=== PATIENT | female | born 1975 | race African-American/Black ===

== ENCOUNTER 2016-09-13 17:30 | Emergency (ER) | payer OTHER ==
[~2016-09-13] VITALS: Ht 154.9 cm; Wt 81.6 kg
[~2016-09-13 17:30] MED LIST: HYDR-2666 PO
[2016-09-13 17:42] VITALS: BP 158/94
[2016-09-13] MEDS ORDERED: ALBU2.5V14 NEB (17:54)
[2016-09-13] MEDS ORDERED: PRED50TA PO (17:54)
[2016-09-13] MEDS ORDERED: HYDR115S2 PO (17:54)
--- NOTE | 2016-09-13 17:54 | PHYS DOC ---
Past Medical History Past Medical History: Asthma, Hypertension Past Surgical History: Other Additional Past Surgical Histo: CYST REMOVAL Alcohol Use: Occasionally Drug Use: None Adult General Chief Complaint Chief Complaint: COUGH HPI HPI Patient is a 41 year old female who presents emergency room the complaint of harsh, nonproductive cough and body aches with nasal congestion that began approximately 4 days ago. Patient states that she was exposed to her mother with an upper respiratory infection for the past 2 weeks. Patient does have a history of asthma. She is a smoker. She denies antibiotic use, hospitalization or foreign travel within the past 90 days. Review of Systems Review of Systems Constitutional: Denies fever or chills [] Eyes: Denies change in visual acuity, redness, or eye pain [] HENT: Denies nasal congestion or sore throat [] Respiratory: Denies cough or shortness of breath [] Cardiovascular: No additional information not addressed in HPI [] GI: Denies abdominal pain, nausea, vomiting, bloody stools or diarrhea [] : Denies dysuria or hematuria [] Musculoskeletal: Denies back pain or joint pain [] Integument: Denies rash or skin lesions [] Neurologic: Denies headache, focal weakness or sensory changes [] Endocrine: Denies polyuria or polydipsia [] Allergies Allergies Allergies Coded Allergies Type Severity Reaction Last Updated Verified No Known Drug Allergies 05/13/16 No Physical Exam Physical Exam Constitutional: Well developed, well nourished, no acute distress, non-toxic appearance. Patient is afebrile. HENT: Normocephalic, atraumatic, bilateral external ears normal, oropharynx moist, no oral exudates, clear rhinorrhea with inflamed nasal mucosa. There is no trismus or hot potato speech. Posterior oropharynx is normal in appearance. Eyes: PERRLA, EOMI, conjunctiva normal, no discharge. [] Neck: Normal range of motion, no tenderness, supple, no stridor. There is no meningismus. There is bilateral anterior and posterior cervical lymphadenopathy. Cardiovascular:Heart rate regular rhythm, no murmur [] Lungs & Thorax: There is no respiratory distress respiratory fatigue. Patient demonstrates a harsh, nonproductive, bronchitic cough. Peripheral lung sounds are clear to auscultation bilaterally. There is some central coarse wheezing the resonates peripherally. This appears to clear with deep breath and cough. Abdomen: Bowel sounds normal, soft, no tenderness, no masses, no pulsatile masses. [] Skin: Warm, dry, no erythema, no rash. [] Back: No tenderness, no CVA tenderness. [] Extremities: No tenderness, no cyanosis, no clubbing, ROM intact, no edema. [] Neurologic: Alert and oriented X 3, normal motor function, normal sensory function, no focal deficits noted. [] Psychologic: Affect normal, judgement normal, mood normal. [] Current Patient Data Vital Signs Vital Signs Date Time Temp Pulse Resp B/P Pulse Ox O2 Delivery O2 Flow Rate FiO2 09/13/16 17:42 98.1 110 18 100 Room Air 98.1 EKG EKG [] Radiology/Procedures Radiology/Procedures [] Course & Med Decision Making Course & Med Decision Making Pertinent Labs and Imaging studies reviewed. (See chart for details) [] Dragon Disclaimer Dragon Disclaimer This electronic medical record was generated, in whole or in part, using a voice recognition dictation system. Departure Departure Impression: Primary Impression: Upper respiratory infection Disposition: HOME, SELF-CARE Condition: GOOD Referrals: UNKNOWN PCP NAME (PCP) Patient Instructions: Smoking Cessation, Tips For Success, Smoking, You Can Quit, Ixcu-bu-[id number], Upper Respiratory Infection, Adult, [id number] Additional Instructions: 1. Your viral upper respiratory infection is beginning to irritate your passageways causing inflammation. 2. Take the medication as prescribed. 3. Review the discharge instructions provided for self-care and reasons to return the emergency department. 4. Contact your primary care doctor's office in the morning to schedule follow- up appointment for reevaluation. Scripts Albuterol Sulfate (Albuterol Sulfate Conc Neb Soln)2.5 Mg/0.5 Ml Vial.neb1 Vial NEB Q4HRS wheezing #60 VIAL Ref 1 Prov:GOPAL LIEBERMAN 09/13/16 Hydrocodone/Chlorphen Polis (Tussionex Pennkinetic Susp)480 Ml Cassandra.er.12h5 Ml PO BID PRN COUGH #120 ML Prov:GOPAL LIEBERMAN 09/13/16 Prednisone 50 Mg Arqbli12 Mg PO DAILY 5 Days Prov:GOPAL LIEBERMAN 09/13/16 GOPAL LIEBERMAN Sep 13, 2016 17:54
== END 2016-09-13 18:04 | disposition home or self-care (01) ==
LOC: ER 17:30
DX: J06.9 Acute upper respiratory infection, unspecified (principal); R59.0 Localized enlarged lymph nodes; J45.909 Unspecified asthma, uncomplicated; I10 Essential (primary) hypertension; F17.200 Nicotine dependence, unspecified, uncomplicated
CPT/HCPCS: 99283

== ENCOUNTER 2019-02-14 01:51 | Inpatient (IN) | payer OTHER ==
[~2019-02-14] VITALS: Ht 154.9 cm; Wt 89.6 kg
[~2019-02-14 01:51] MED LIST changes: +ALBU2.5V14 NEB; -HYDR-2666 PO; +HYDR-2761 PO; +HYDR115S2 PO; +PRED50TA PO
[2019-02-14 02:12] LABS: BASO % 0 % (0-3); EOS # 0.2 x10^3/uL (0.0-0.7); EOS % 2 % (0-3); HEMATOCRIT 41.2 % (36.0-47.0); LYMPH % 35 % (24-48); MEAN CORPUSCULAR HEMOGLOBIN 28 pg (25-35); MEAN CORPUSCULAR HGB CONC 34 g/dL (31-37); MEAN CORPUSCULAR VOLUME 83 fL (79-100); MONO # 0.7 x10^3/uL (0.0-1.1); MONO % 8 % (0-9); NEUT # 4.7 x10^3/uL (1.8-7.7); NEUT % 54 % (31-73); PLATELET COUNT 269 x10^3/uL (140-400); RED BLOOD COUNT 4.96 x10^6/uL (3.50-5.40); RED CELL DISTRIBUTION WIDTH 14.1 % (11.5-14.5); WHITE BLOOD COUNT 8.6 x10^3/uL (4.0-11.0)
[2019-02-14 02:25] LABS: PROTHROMBIN TIME PATIENT 12.7 SEC (11.7-14.0)
[2019-02-14 02:30] LABS: D-DIMER 0.79 ug/mlFEU (0.00-0.50)
[2019-02-14] MEDS ORDERED: IV NORMAL SALINE 1000ML BAG 1,000 ML IV ONE (02:30)
[2019-02-14] MEDS ORDERED: ASPIRIN 325 MG TABLET PO ONE (02:30)
[2019-02-14 02:45] LABS: CALCIUM 9.1 mg/dL (8.5-10.1); CREATININE 0.9 mg/dL (0.6-1.0); GFR 81.9; POTASSIUM 3.7 mmol/L (3.5-5.1)
[2019-02-14 02:50] LABS: ALBUMIN 3.9 g/dL (3.4-5.0); ALBUMIN/GLOBULIN RATIO 0.9 (1.0-1.7); MAGNESIUM 1.8 mg/dL (1.8-2.4); TOTAL BILIRUBIN 0.1 mg/dL (0.2-1.0); TOTAL PROTEIN 8.2 g/dL (6.4-8.2)
[2019-02-14] MEDS ORDERED: CONTRAST GIVEN. MC PRN (03:15)
[2019-02-14] MEDS ORDERED: IOHEXOL 300 MG/ML 100ML VIAL. IV ONE (03:30)
[2019-02-14] MEDS ORDERED: fentaNYL PF VIAL 100 MCG/2 ML VIAL IV PRN (03:45)
[2019-02-14] MEDS ORDERED: ONDANSETRON PF 4 MG/2 ML VIAL. IV PRN (03:45)
[2019-02-14] MEDS ORDERED: UNABLE MC (04:04)
[2019-02-14 04:26] LABS: BILIRUBIN,URINE NEGATIVE (NEG); CLARITY,URINE CLEAR; COLOR,URINE YELLOW; NITRITE,URINE NEGATIVE (NEG); PH,URINE 6.5; PROTEIN,URINE NEGATIVE (NEG-TRACE)
[2019-02-14 04:33] LABS: BACTERIA,URINE 0 /HPF (0-FEW); RBC,URINE 0 /HPF (0-2); SQUAMOUS EPITHELIAL CELL,UR MOD /LPF
--- NOTE | 2019-02-14 05:54 | PHYS DOC ---
Past Medical History Past Medical History: Asthma, Hypertension Past Surgical History: Other Additional Past Surgical Histo: CYST REMOVAL Smoking: Cigarettes Alcohol Use: Occasionally Drug Use: None Adult General Chief Complaint Chief Complaint: CHEST PAIN HPI HPI Patient is a 43 year old [f__sex] who presents with [] Review of Systems Review of Systems Constitutional: Denies fever or chills [] Eyes: Denies change in visual acuity, redness, or eye pain [] HENT: Denies nasal congestion or sore throat [] Respiratory: Denies cough or shortness of breath [] Cardiovascular: No additional information not addressed in HPI [] GI: Denies abdominal pain, nausea, vomiting, bloody stools or diarrhea [] : Denies dysuria or hematuria [] Musculoskeletal: Denies back pain or joint pain [] Integument: Denies rash or skin lesions [] Neurologic: Denies headache, focal weakness or sensory changes [] Endocrine: Denies polyuria or polydipsia [] All other systems were reviewed and found to be within normal limits, except as documented in this note. Current Medications Current Medications Current Medications Medications (Trade) Dose Ordered Sig/Cj Start Time Stop Time Status Last Admin Dose Admin Aspirin (Ashely Aspirin) 325 mg 1X ONCE 02/14/19 02:30 02/14/19 02:31 DC 02/14/19 02:42 325 MG Info (CONTRAST GIVEN -- Rx MONITORING) 1 each PRN DAILY PRN 02/14/19 03:15 02/16/19 03:14 Cancel Iohexol (Omnipaque 300 Mg/ml) 75 ml 1X ONCE 02/14/19 03:30 02/14/19 03:31 Cancel Sodium Chloride 1,000 ml @ 1,000 mls/hr 1X ONCE 02/14/19 02:30 02/14/19 03:29 DC 02/14/19 02:42 1,000 MLS/HR Physical Exam Physical Exam Constitutional: Well developed, well nourished, no acute distress, non-toxic appearance. [] HENT: Normocephalic, atraumatic, bilateral external ears normal, oropharynx moist, no oral exudates, nose normal. [] Eyes: PERRLA, EOMI, conjunctiva normal, no discharge. [] Neck: Normal range of motion, no tenderness, supple, no stridor. [] Cardiovascular:Heart rate regular rhythm, no murmur [] Lungs & Thorax: Bilateral breath sounds clear to auscultation [] Abdomen: Bowel sounds normal, soft, no tenderness, no masses, no pulsatile masses. [] Skin: Warm, dry, no erythema, no rash. [] Back: No tenderness, no CVA tenderness. [] Extremities: No tenderness, no cyanosis, no clubbing, ROM intact, no edema. [] Neurologic: Alert and oriented X 3, normal motor function, normal sensory function, no focal deficits noted. [] Psychologic: Affect normal, judgement normal, mood normal. [] Current Patient Data Vital Signs Vital Signs Date Time Temp Pulse Resp B/P (MAP) Pulse Ox O2 Delivery O2 Flow Rate FiO2 02/14/19 02:33 73 123/68 (86) 99 02/14/19 01:59 98.8 20 Room Air 98.8 Lab Values Laboratory Tests Test 02/14/19 02:00 White Blood Count 8.6 x10^3/uL (4.0-11.0) Red Blood Count 4.96 x10^6/uL (3.50-5.40) Hemoglobin 14.0 g/dL (12.0-15.5) Hematocrit 41.2 % (36.0-47.0) Mean Corpuscular Volume 83 fL (79-100) Mean Corpuscular Hemoglobin 28 pg (25-35) Mean Corpuscular Hemoglobin Concent 34 g/dL (31-37) Red Cell Distribution Width 14.1 % (11.5-14.5) Platelet Count 269 x10^3/uL (140-400) Neutrophils (%) (Auto) 54 % (31-73) Lymphocytes (%) (Auto) 35 % (24-48) Monocytes (%) (Auto) 8 % (0-9) Eosinophils (%) (Auto) 2 % (0-3) Basophils (%) (Auto) 0 % (0-3) Neutrophils # (Auto) 4.7 x10^3/uL (1.8-7.7) Lymphocytes # (Auto) 3.0 x10^3/uL (1.0-4.8) Monocytes # (Auto) 0.7 x10^3/uL (0.0-1.1) Eosinophils # (Auto) 0.2 x10^3/uL (0.0-0.7) Basophils # (Auto) 0.0 x10^3/uL (0.0-0.2) Prothrombin Time 12.7 SEC (11.7-14.0) Prothrombin Time INR 1.0 (0.8-1.1) Activated Partial Thromboplast Time 35 SEC (24-38) D-Dimer (Stephany) 0.79 ug/mlFEU (0.00-0.50) H Sodium Level 141 mmol/L (136-145) Potassium Level 3.7 mmol/L (3.5-5.1) Chloride Level 103 mmol/L (98-107) Carbon Dioxide Level 24 mmol/L (21-32) Anion Gap 14 (6-14) Blood Urea Nitrogen 16 mg/dL (7-20) Creatinine 0.9 mg/dL (0.6-1.0) Estimated GFR (Cockcroft-Gault) 81.9 BUN/Creatinine Ratio 18 (6-20) Glucose Level 108 mg/dL (70-99) H Calcium Level 9.1 mg/dL (8.5-10.1) Magnesium Level 1.8 mg/dL (1.8-2.4) Total Bilirubin 0.1 mg/dL (0.2-1.0) L Aspartate Amino Transferase (AST) 19 U/L (15-37) Alanine Aminotransferase (ALT) 33 U/L (14-59) Alkaline Phosphatase 80 U/L (46-116) Creatine Kinase 97 U/L (26-192) Creatine Kinase MB (Mass) 0.6 ng/mL (0.0-3.6) Creatine Kinase MB Relative Index 0.6 % (0-4) Troponin I Quantitative 0.041 ng/mL (0.000-0.055) RO-Vzm-W-Type Natriuretic Peptide 32 pg/mL (0-124) Total Protein 8.2 g/dL (6.4-8.2) Albumin 3.9 g/dL (3.4-5.0) Albumin/Globulin Ratio 0.9 (1.0-1.7) L Lipase 127 U/L (73-393) Laboratory Tests 02/14/19 02:00 Laboratory Tests 02/14/19 02:00 EKG EKG EKG obtained 01:59 and read @ 02:03. No ST-elevations noted.[] Radiology/Procedures Radiology/Procedures [] Course & Med Decision Making Course & Med Decision Making Pertinent Labs and Imaging studies reviewed. (See chart for details) [] Dragon Disclaimer Dragon Disclaimer This electronic medical record was generated, in whole or in part, using a voice recognition dictation system. Departure Departure Impression: Primary Impression: Chest pain, rule out acute myocardial infarction Additional Impression: Elevated d-dimer Disposition: ADMITTED INPATIENT Admitting Physician: FIFI Lares) Condition: STABLE Referrals: NO PCP (PCP) The HEART Score for CP Pts HEART Score for Chest Pain: HEART Score for Chest Pain Response (Comments) Value History Moderately Suspicious 1 ECG Normal 0 Age >45 - < 65 1 Risk Factors 1 or 2 Risk Factors 1 Troponin < Normal Limit 0 Total 3 Risk Factors: Risk Factors: DM, Current or recent (<one month) smoker, HTN, HLP, family history of CAD, obesity. Risk Scores: Score 0 - 3: 2.5% MACE over next 6 weeks - Discharge Home Score 4 - 6: 20.3% MACE over next 6 weeks - Admit for Clinical Observation Score 7 - 10: 72.7% MACE over next 6 weeks - Early Invasive Strategies Problem Qualifiers MARIBEL ROBERSON DO Feb 14, 2019 05:54
--- NOTE | 2019-02-14 06:25 | EKG ---
[facility] [address] [place] [address] Test Date: 2019-02-14 Test Time: 01:59:34 Pat Name: RADHA BETANCOURT Department: Room: Gender: F Demi Chef: MATTHEW : 1975 Requested By: MARIBEL ROBERSON Order Number: [id number] Reading MD: Measurements Intervals [place] Rate: 87 P: 29 MA: 156 QRS: 30 QRSD: 88 T: 9 QT: 368 QTc: 449 Interpretive Statements SINUS RHYTHM T ABNORMALITY IN INFEROLATERAL LEADS ABNORMAL ECG RI6.01 No previous ECG available for comparison
--- NOTE | 2019-02-14 07:45 | RAD ---
CHEST PA LATERAL History: Chest pain Comparison: Two-view chest May 13, 2016. Findings: The cardiomediastinal silhouette is normal. Pulmonary vasculature is normal. The lungs are clear. No pleural effusion or pneumothorax is seen. There is no acute bone abnormality. IMPRESSION: No acute cardiopulmonary process. Electronically signed by: Donavon Canada MD (02/14/2019 7:42 AM) [id number]
--- NOTE | 2019-02-14 09:00 | PDOC2 ---
JONATAN JEROME LOOM FIXER HELPER 02/14/19 0859: CARDIAC CONSULT DATE OF CONSULT Date of Consult DATE: 02/14/19 TIME: 08:56 REASON FOR CONSULT Reason for Consult: Chest pain REFERRING PHYSICIAN Referring Physician: Dr. Walsh SOURCE Source: Chart review, Patient HISTORY OF PRESENT ILLNESS HISTORY OF PRESENT ILLNESS This is a 43 yo female who presented secondary to chest pain. Patient reports intermittent sharp pain in her right chest since yesterday morning. Woke up early this morning with palpitations so she decided to come to the ED for further evaluation and treatment. Thinks it could be anxiety. Is also having some mid-back pain that makes her feel like it is cutting off her air. No associated dizziness, diaphoresis, or nausea/vomiting. Works in a [employer] from [employer]. Has worked 9 days in a row. Has noticed some bilateral LE edema recently. Does improved overnight. No history of CAD. PAST MEDICAL HISTORY Cardiovascular: HTN Pulmonary: Asthma Musculoskeletal: Osteoarthritis PAST SURGICAL HISTORY Past Surgical History: Other (ovarian cyst removal ) FAMILY HISTORY Family History: Drug Abuse, Hypertension SOCIAL HISTORY Smoke: <1 pack per day ALCOHOL: none Drugs: None Lives: with Family CURRENT MEDICATIONS CURRENT MEDICATIONS Current Medications Medications (Trade) Dose Ordered Sig/Cj Route PRN Reason Start Time Stop Time Status Last Admin Dose Admin Aspirin (Ashely Aspirin) 325 mg 1X ONCE PO 02/14/19 02:30 02/14/19 02:31 DC 02/14/19 02:42 Sodium Chloride 1,000 ml @ 1,000 mls/hr 1X ONCE IV 02/14/19 02:30 02/14/19 03:29 DC 02/14/19 02:42 ALLERGIES ALLERGIES: Coded Allergies: Iodinated Contrast- Oral and IV Dye (Verified Allergy, Severe, ANAPHALA XIS, 02/14/19) ROS Review of System 14 point ROS conducted with pertinent positives noted above in HPI. PHYSICAL EXAM General: Alert, Oriented X3, Cooperative, No acute distress HEENT: Atraumatic Lungs: Clear to auscultation, Normal air movement Heart: Regular rate, Normal S1, Normal S2, No murmurs Abdomen: Soft, No tenderness Extremities: No edema, Normal pulses Skin: No significant lesion Neuro: Normal speech, Sensation intact Psych/Mental Status: Mental status NL, Mood NL MUSCULOSKELETAL: Osteoarthritic changes both hands VITALS/I&O VITALS/I&O: Vital Signs Date Time Temp Pulse Resp B/P (MAP) Pulse Ox O2 Delivery O2 Flow Rate FiO2 02/14/19 06:54 69 145/75 (98) 98 02/14/19 01:59 98.8 20 Room Air 98.8 LABS Lab: Laboratory Tests Test 02/14/19 02:00 02/14/19 04:15 02/14/19 07:25 White Blood Count 8.6 x10^3/uL (4.0-11.0) Red Blood Count 4.96 x10^6/uL (3.50-5.40) Hemoglobin 14.0 g/dL (12.0-15.5) Hematocrit 41.2 % (36.0-47.0) Mean Corpuscular Volume 83 fL (79-100) Mean Corpuscular Hemoglobin 28 pg (25-35) Mean Corpuscular Hemoglobin Concent 34 g/dL (31-37) Red Cell Distribution Width 14.1 % (11.5-14.5) Platelet Count 269 x10^3/uL (140-400) Neutrophils (%) (Auto) 54 % (31-73) Lymphocytes (%) (Auto) 35 % (24-48) Monocytes (%) (Auto) 8 % (0-9) Eosinophils (%) (Auto) 2 % (0-3) Basophils (%) (Auto) 0 % (0-3) Neutrophils # (Auto) 4.7 x10^3/uL (1.8-7.7) Lymphocytes # (Auto) 3.0 x10^3/uL (1.0-4.8) Monocytes # (Auto) 0.7 x10^3/uL (0.0-1.1) Eosinophils # (Auto) 0.2 x10^3/uL (0.0-0.7) Basophils # (Auto) 0.0 x10^3/uL (0.0-0.2) Prothrombin Time 12.7 SEC (11.7-14.0) Prothrombin Time INR 1.0 (0.8-1.1) Activated Partial Thromboplast Time 35 SEC (24-38) D-Dimer (Stephany) 0.79 ug/mlFEU (0.00-0.50) H Sodium Level 141 mmol/L (136-145) Potassium Level 3.7 mmol/L (3.5-5.1) Chloride Level 103 mmol/L (98-107) Carbon Dioxide Level 24 mmol/L (21-32) Anion Gap 14 (6-14) Blood Urea Nitrogen 16 mg/dL (7-20) Creatinine 0.9 mg/dL (0.6-1.0) Estimated GFR (Cockcroft-Gault) 81.9 BUN/Creatinine Ratio 18 (6-20) Glucose Level 108 mg/dL (70-99) H Calcium Level 9.1 mg/dL (8.5-10.1) Magnesium Level 1.8 mg/dL (1.8-2.4) Total Bilirubin 0.1 mg/dL (0.2-1.0) L Aspartate Amino Transferase (AST) 19 U/L (15-37) Alanine Aminotransferase (ALT) 33 U/L (14-59) Alkaline Phosphatase 80 U/L (46-116) Creatine Kinase 97 U/L (26-192) Creatine Kinase MB (Mass) 0.6 ng/mL (0.0-3.6) Creatine Kinase MB Relative Index 0.6 % (0-4) Troponin I Quantitative 0.041 ng/mL (0.000-0.055) 0.024 ng/mL (0.000-0.055) OU-Okl-T-Type Natriuretic Peptide 32 pg/mL (0-124) Total Protein 8.2 g/dL (6.4-8.2) Albumin 3.9 g/dL (3.4-5.0) Albumin/Globulin Ratio 0.9 (1.0-1.7) L Lipase 127 U/L (73-393) Urine Collection Type Unknown Urine Color Yellow Urine Clarity Clear Urine pH 6.5 Urine Specific Bayard 1.015 Urine Protein Negative mg/dL (NEG-TRACE) Urine Glucose (UA) Negative mg/dL (NEG) Urine Ketones (Stick) Negative mg/dL (NEG) Urine Blood Negative (NEG) Urine Nitrite Negative (NEG) Urine Bilirubin Negative (NEG) Urine Urobilinogen Dipstick 1.0 mg/dL (0.2 mg/dL) Urine Leukocyte Esterase Negative (NEG) Urine RBC 0 /HPF (0-2) Urine WBC 1-4 /HPF (0-4) Urine Squamous Epithelial Cells Mod /LPF Urine Bacteria 0 /HPF (0-FEW) Urine Mucus Slight /LPF Laboratory Tests 02/14/19 02:00 Laboratory Tests 02/14/19 02:00 ASSESSMENT/PLAN ASSESSMENT/PLAN 1. Chest pain, atypical. Trop negative x2- AMI ruled out. ? Anxiety component1. 2. Hypertension Recommendations ASA Lipids Trend troponin Echo to assess LV systolic function Supportive care Consider outpatient ischemic evaluation unless echo significantly abnormal MARGARITO COBB MD 02/14/19 2107: CARDIAC CONSULT ASSESSMENT/PLAN ASSESSMENT/PLAN Patient seen and examined. Agree with DISH CARRIER's assessment and plan. CP with very atypical features RI ruled out Plan echo to rule out wall motion abnormalities We will consider ischemic evaluation as outpatient Thank you for your consultation JONATAN JEROME APRN Feb 14, 2019 08:59 MARGARITO COBB MD Feb 14, 2019 21:07
--- NOTE | 2019-02-14 10:48 | RAD ---
EXAM: Bilateral lower extremity venous Doppler sonogram. HISTORY: Elevated d-dimer. Pain and swelling. TECHNIQUE: Beltran scale and color Doppler sonographic evaluation of the bilateral lower extremity veins with spectral waveform analysis was performed. FINDINGS: There is normal color flow, normal compressibility and there are normal spectral waveforms in the common femoral, superficial femoral, popliteal, posterior tibial and greater saphenous veins. IMPRESSION: No Doppler evidence of lower extremity deep venous thrombosis. Electronically signed by: Nahomy Newell MD (02/14/2019 10:46 AM) [place] [id number]
--- NOTE | 2019-02-14 12:32 | PDOC1 ---
History and Physical Date of Admission Date of Admission DATE: 02/14/19 TIME: 12:32 Identification/Chief Complaint Chief Complaint seen in ER THIS AM WITH right chest since yesterday morning. Woke up early this morning with palpitations so she decided to come to the ED for further evaluation and treatment. Thinks it could be anxiety. Is also having some mid-back pain that makes her feel like it is cutting off her air. under stress, worked last 9 days in a row No associated dizziness, diaphoresis, or nausea/vomiting. D-DIMER ELEVATED, V/Q SCAN IS PENDING Past Medical History Past Medical History Past Medical History Past Medical History Past Medical History: Asthma, Hypertension Past Surgical History: Other Additional Past Surgical Histo: CYST REMOVAL Smoking: Cigarettes Alcohol Use: Occasionally Drug Use: None family hx obesity Cardiovascular: HTN Pulmonary: Asthma GI: No pertinent hx Musculoskeletal: Osteoarthritis Infectious disease: No pertinent hx ENT: No pertinent hx Renal/: No pertinent hx Past Surgical History Past Surgical History: Other (ovarian cyst removal ) Family History Family History: Drug Abuse, Hypertension Social History Smoke: <1 pack per day ALCOHOL: none Drugs: None Current Medications Current Medications Current Medications Aspirin (Ashely Aspirin) 325 mg 1X ONCE PO Last administered on 02/14/19at 02:42; Start 02/14/19 at 02:30; Stop 02/14/19 at 02:31; Status DC Sodium Chloride 1,000 ml @ 1,000 mls/hr 1X ONCE IV Last administered on 02/14/19at 02:42; Start 02/14/19 at 02:30; Stop 02/14/19 at 03:29; Status DC Iohexol (Omnipaque 300 Mg/ml) 75 ml 1X ONCE IV ; Start 02/14/19 at 03:30; Stop 02/14/19 at 03:31; Status Cancel Info (CONTRAST GIVEN -- Rx MONITORING) 1 each PRN DAILY PRN MC SEE COMMENTS; Start 02/14/19 at 03:15; Stop 02/16/19 at 03:14; Status Cancel Ondansetron HCl (Zofran) 4 mg PRN Q8HRS PRN IV NAUSEA/VOMITING 1ST CHOICE; Start 02/14/19 at 03:45; Stop 02/15/19 at 03:44 Fentanyl Citrate (Fentanyl 2ml Vial) 50 mcg PRN Q2HRS PRN IV SEVERE PAIN 7-10; Start 02/14/19 at 03:45 Active Scripts Active Albuterol Sulfate Conc Neb Soln (Albuterol Sulfate) 2.5 Mg/0.5 Ml Vial.neb 1 Vial NEB Q4HRS Tussionex Pennkinetic Susp (Hydrocodone/Chlorphen Polis) 480 Ml Cassandra.er.12h 5 Ml PO BID PRN Prednisone 50 Mg Tablet 50 Mg PO DAILY 5 Days Hydrocodone-Apap 5-325 (Hydrocodone Bit/Acetaminophen) 1 Each Tablet 1 Tab PO PRN Q4-6HRS PRN Reported Unable To Obtain Meds From Prior To Admit (Info) Each 1 Each MC Allergies Allergies: Coded Allergies: Iodinated Contrast- Oral and IV Dye (Verified Allergy, Severe, ANAPHALAXIS, 02/14/19) ROS Review of System Review of Systems Review of Systems Constitutional: Denies fever or chills [] Eyes: Denies change in visual acuity, redness, or eye pain [] HENT: Denies nasal congestion or sore throat [] Respiratory: Denies cough or shortness of breath [] Cardiovascular: No additional information not addressed in HPI [] GI: Denies abdominal pain, nausea, vomiting, bloody stools or diarrhea [] : Denies dysuria or hematuria [] Musculoskeletal: Denies back pain or joint pain [] Integument: Denies rash or skin lesions [] Neurologic: Denies headache, focal weakness or sensory changes [] Endocrine: Denies polyuria or polydipsia [] 14 pt systems were reviewed and found to be within normal limits, except as documented PSYCHOLOGICAL ROS: YES: Anxiety ALLERGY AND IMMUNOLOGY: No: Hives, Insect Bite Sensitivity, Itchy/Watery Eyes, Nasal Congestion, Post Nasal Drip, Seasonal Allergies, Other Hematological and Lymphatic: No: Bleeding Problems, Blood Clots, Blood Transfusions, Brusing, Night Sweats, Pallor, Swollen Lymph Nodes, Other Respiratory: No: Cough, Hemoptysis, Orthopnea, Pleuritic Pain, Shortness of breath, SOB with excertion, Sputum Changes, Stridor, Tachypnea, Wheezing, Other Cardiovascular: yes Chest Pain, yes Palpitations Gastrointestinal: No Nausea, No Vomiting, No Abdominal Pain, No Diarrhea, No Constipation, No Melena, No Hematochezia, No Other Genitourinary: No Dysuria, No Frequency, No Incontinence, No Hematuria, No Retention, No Discharge, No Urgency, No Pain, No Flank Pain, No Other, No , No , No , No , No , No , No Musculoskeletal: No Gait Disturbance, No Joint Pain, No Joint Stiffness, No Joint Swelling, No Muscle Pain, No Muscular Weakness, No Pain In:, No Swelling In:, No Other Physical Exam Physical Exam Physical Exam Physical Exam Constitutional: Well developed, well nourished, no acute distress, non-toxic appearance. [] HENT: Normocephalic, atraumatic, bilateral external ears normal, oropharynx moist, no oral exudates, nose normal. [] Eyes: PERRLA, EOMI, conjunctiva normal, no discharge. [] Neck: Normal range of motion, no tenderness, supple, no stridor. [] Cardiovascular:Heart rate regular rhythm, no murmur [] Lungs & Thorax: Bilateral breath sounds clear to auscultation [] Abdomen: Bowel sounds normal, soft, no tenderness, no masses, no pulsatile masses. [] Skin: Warm, dry, no erythema, no rash. [] Back: No tenderness, no CVA tenderness. [] Extremities: No tenderness, no cyanosis, no clubbing, ROM intact, no edema. [] Neurologic: Alert and oriented X 3, normal motor function, normal sensory function, no focal deficits noted. [] Psychologic: Affect normal, judgement normal, mood normal. [] General: Alert, Oriented X3, Cooperative, No acute distress HEENT: Atraumatic Lungs: Clear to auscultation Heart: RRR Breasts: Not examined Abdomen: Soft Rectal Exam: not examined PELVIC: Examination not indicated Extremities: No cyanosis Neuro: Normal speech, Cranial nerves 3-12 NL Psych/Mental Status: Mental status NL, Mood NL Vitals Vitals Vital Signs Date Time Temp Pulse Resp B/P (MAP) Pulse Ox O2 Delivery O2 Flow Rate FiO2 02/14/19 10:00 70 16 112/53 (72) 97 Room Air 02/14/19 01:59 98.8 98.8 Labs Labs Laboratory Tests Test 02/14/19 02:00 02/14/19 04:15 02/14/19 07:25 02/14/19 09:45 White Blood Count 8.6 x10^3/uL (4.0-11.0) Red Blood Count 4.96 x10^6/uL (3.50-5.40) Hemoglobin 14.0 g/dL (12.0-15.5) Hematocrit 41.2 % (36.0-47.0) Mean Corpuscular Volume 83 fL (79-100) Mean Corpuscular Hemoglobin 28 pg (25-35) Mean Corpuscular Hemoglobin Concent 34 g/dL (31-37) Red Cell Distribution Width 14.1 % (11.5-14.5) Platelet Count 269 x10^3/uL (140-400) Neutrophils (%) (Auto) 54 % (31-73) Lymphocytes (%) (Auto) 35 % (24-48) Monocytes (%) (Auto) 8 % (0-9) Eosinophils (%) (Auto) 2 % (0-3) Basophils (%) (Auto) 0 % (0-3) Neutrophils # (Auto) 4.7 x10^3/uL (1.8-7.7) Lymphocytes # (Auto) 3.0 x10^3/uL (1.0-4.8) Monocytes # (Auto) 0.7 x10^3/uL (0.0-1.1) Eosinophils # (Auto) 0.2 x10^3/uL (0.0-0.7) Basophils # (Auto) 0.0 x10^3/uL (0.0-0.2) Prothrombin Time 12.7 SEC (11.7-14.0) Prothromb Time International Ratio 1.0 (0.8-1.1) Activated Partial Thromboplast Time 35 SEC (24-38) D-Dimer (Stephany) 0.79 ug/mlFEU (0.00-0.50) Sodium Level 141 mmol/L (136-145) Potassium Level 3.7 mmol/L (3.5-5.1) Chloride Level 103 mmol/L (98-107) Carbon Dioxide Level 24 mmol/L (21-32) Anion Gap 14 (6-14) Blood Urea Nitrogen 16 mg/dL (7-20) Creatinine 0.9 mg/dL (0.6-1.0) Estimated GFR (Cockcroft-Gault) 81.9 BUN/Creatinine Ratio 18 (6-20) Glucose Level 108 mg/dL (70-99) Calcium Level 9.1 mg/dL (8.5-10.1) Magnesium Level 1.8 mg/dL (1.8-2.4) Total Bilirubin 0.1 mg/dL (0.2-1.0) Aspartate Amino Transf (AST/SGOT) 19 U/L (15-37) Alanine Aminotransferase (ALT/SGPT) 33 U/L (14-59) Alkaline Phosphatase 80 U/L (46-116) Creatine Kinase 97 U/L (26-192) Creatine Kinase MB (Mass) 0.6 ng/mL (0.0-3.6) Creatine Kinase MB Relative Index 0.6 % (0-4) Troponin I Quantitative 0.041 ng/mL (0.000-0.055) 0.024 ng/mL (0.000-0.055) 0.027 ng/mL (0.000-0.055) HP-Mcc-A-Type Natriuretic Peptide 32 pg/mL (0-124) Total Protein 8.2 g/dL (6.4-8.2) Albumin 3.9 g/dL (3.4-5.0) Albumin/Globulin Ratio 0.9 (1.0-1.7) Lipase 127 U/L (73-393) Urine Collection Type Unknown Urine Color Yellow Urine Clarity Clear Urine pH 6.5 Urine Specific [place] 1.015 Urine Protein Negative mg/dL (NEG-TRACE) Urine Glucose (UA) Negative mg/dL (NEG) Urine Ketones (Stick) Negative mg/dL (NEG) Urine Blood Negative (NEG) Urine Nitrite Negative (NEG) Urine Bilirubin Negative (NEG) Urine Urobilinogen Dipstick 1.0 mg/dL (0.2 mg/dL) Urine Leukocyte Esterase Negative (NEG) Urine RBC 0 /HPF (0-2) Urine WBC 1-4 /HPF (0-4) Urine Squamous Epithelial Cells Mod /LPF Urine Bacteria 0 /HPF (0-FEW) Urine Mucus Slight /LPF Laboratory Tests Test 02/14/19 02:00 02/14/19 04:15 02/14/19 07:25 02/14/19 09:45 White Blood Count 8.6 x10^3/uL (4.0-11.0) Red Blood Count 4.96 x10^6/uL (3.50-5.40) Hemoglobin 14.0 g/dL (12.0-15.5) Hematocrit 41.2 % (36.0-47.0) Mean Corpuscular Volume 83 fL (79-100) Mean Corpuscular Hemoglobin 28 pg (25-35) Mean Corpuscular Hemoglobin Concent 34 g/dL (31-37) Red Cell Distribution Width 14.1 % (11.5-14.5) Platelet Count 269 x10^3/uL (140-400) Neutrophils (%) (Auto) 54 % (31-73) Lymphocytes (%) (Auto) 35 % (24-48) Monocytes (%) (Auto) 8 % (0-9) Eosinophils (%) (Auto) 2 % (0-3) Basophils (%) (Auto) 0 % (0-3) Neutrophils # (Auto) 4.7 x10^3/uL (1.8-7.7) Lymphocytes # (Auto) 3.0 x10^3/uL (1.0-4.8) Monocytes # (Auto) 0.7 x10^3/uL (0.0-1.1) Eosinophils # (Auto) 0.2 x10^3/uL (0.0-0.7) Basophils # (Auto) 0.0 x10^3/uL (0.0-0.2) Prothrombin Time 12.7 SEC (11.7-14.0) Prothromb Time International Ratio 1.0 (0.8-1.1) Activated Partial Thromboplast Time 35 SEC (24-38) D-Dimer (Stephany) 0.79 ug/mlFEU (0.00-0.50) Sodium Level 141 mmol/L (136-145) Potassium Level 3.7 mmol/L (3.5-5.1) Chloride Level 103 mmol/L (98-107) Carbon Dioxide Level 24 mmol/L (21-32) Anion Gap 14 (6-14) Blood Urea Nitrogen 16 mg/dL (7-20) Creatinine 0.9 mg/dL (0.6-1.0) Estimated GFR (Cockcroft-Gault) 81.9 BUN/Creatinine Ratio 18 (6-20) Glucose Level 108 mg/dL (70-99) Calcium Level 9.1 mg/dL (8.5-10.1) Magnesium Level 1.8 mg/dL (1.8-2.4) Total Bilirubin 0.1 mg/dL (0.2-1.0) Aspartate Amino Transf (AST/SGOT) 19 U/L (15-37) Alanine Aminotransferase (ALT/SGPT) 33 U/L (14-59) Alkaline Phosphatase 80 U/L (46-116) Creatine Kinase 97 U/L (26-192) Creatine Kinase MB (Mass) 0.6 ng/mL (0.0-3.6) Creatine Kinase MB Relative Index 0.6 % (0-4) Troponin I Quantitative 0.041 ng/mL (0.000-0.055) 0.024 ng/mL (0.000-0.055) 0.027 ng/mL (0.000-0.055) CZ-Gez-A-Type Natriuretic Peptide 32 pg/mL (0-124) Total Protein 8.2 g/dL (6.4-8.2) Albumin 3.9 g/dL (3.4-5.0) Albumin/Globulin Ratio 0.9 (1.0-1.7) Lipase 127 U/L (73-393) Urine Collection Type Unknown Urine Color Yellow Urine Clarity Clear Urine pH 6.5 Urine Specific [place] 1.015 Urine Protein Negative mg/dL (NEG-TRACE) Urine Glucose (UA) Negative mg/dL (NEG) Urine Ketones (Stick) Negative mg/dL (NEG) Urine Blood Negative (NEG) Urine Nitrite Negative (NEG) Urine Bilirubin Negative (NEG) Urine Urobilinogen Dipstick 1.0 mg/dL (0.2 mg/dL) Urine Leukocyte Esterase Negative (NEG) Urine RBC 0 /HPF (0-2) Urine WBC 1-4 /HPF (0-4) Urine Squamous Epithelial Cells Mod /LPF Urine Bacteria 0 /HPF (0-FEW) Urine Mucus Slight /LPF Images Images CHEST PA LATERAL History: Chest pain Comparison: Two-view chest May 13, 2016. Findings: The cardiomediastinal silhouette is normal. Pulmonary vasculature is normal. The lungs are clear. No pleural effusion or pneumothorax is seen. There is no acute bone abnormality. IMPRESSION: No acute cardiopulmonary process. 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 HISTORY: Elevated d-dimer. Pain and swelling. TECHNIQUE: Beltran scale and color Doppler sonographic evaluation of the bilateral lower extremity veins with spectral waveform analysis was performed. FINDINGS: There is normal color flow, normal compressibility and there are normal spectral waveforms in the common femoral, superficial femoral, popliteal, posterior tibial and greater saphenous veins. IMPRESSION: No Doppler evidence of lower extremity deep venous thrombosis. Electronically signed by: Nahomy Gibbs MD (02/14/2019 10:46 AM) [facility]2 DICTATED and SIGNED BY: NAHOMY GIBBS MD DATE: 02/14/19 1046 VTE Prophylaxis Ordered VTE Prophylaxis Devices: Yes VTE Pharmacological Prophylaxi: Yes Assessment/Plan Assessment/Plan IMPRESSION Atypical chest discomfort morbid obesity hypertension ELEVATED D- DIMER ADMIT CVC BED ASA Lipids, fasting V/Q SCAN pau cardiology consult Trend troponin I Echo VENOUS DOPPLER BOTH LEGS NEG FOR DVT dvt prophylaxis 62 min pt exam, chart review, > 50% of time spent with exam, chart review, pt care coordination BONIFACIO CLARK MD Feb 14, 2019 12:32
[2019-02-14 13:15] VITALS: BP 136/82
[2019-02-14] MEDS ORDERED: ENOXAPARIN 40 MG/0.4 ML SYRINGE. SQ SCH (14:00)
[2019-02-14] MEDS ORDERED: ALBU2.5V8 PO (14:01)
[2019-02-14] MEDS ORDERED: HYDR12.59 PO (14:01)
[2019-02-14] MEDS ORDERED: AMLO10TA8 PO (14:01)
[2019-02-14 15:00] VITALS: BP 132/76
[2019-02-14] MEDS: amLODIPine BESYLATE 10 MG TABLET PO SCH (15:00)
[2019-02-14] MEDS: hydroCHLOROthiazide 12.5 MG CAPSULE PO SCH (15:00)
[2019-02-14] MEDS ORDERED: HYDROcodone/APAP 5/325MG 1 TAB TABLET PO PRN (15:00)
[2019-02-14] MEDS ORDERED: NON FORMULARY ITEM (Albuterol Sulfate (Albuterol Sulfate Conc Neb Soln) 1 VIAL) NEB SCH (16:00)
[2019-02-14] MEDS: ALBUTEROL SULFATE 2.5 MG/3 ML NEBU. NEB SCH ×2 (16:36→19:42)
[2019-02-14 19:05] VITALS: BP 117/67
[2019-02-14 23:35] VITALS: BP 151/84
[2019-02-15 03:33] VITALS: BP 142/79
[2019-02-15] MEDS: ALBUTEROL SULFATE 2.5 MG/3 ML NEBU. NEB SCH ×5 (03:38→15:52)
[2019-02-15 05:56] LABS: CHOLESTEROL/HDL RATIO 3.5
[2019-02-15 07:00] VITALS: BP 133/79
--- NOTE | 2019-02-15 08:10 | PDOC ---
PROGRESS NOTES Chief Complaint Chief Complaint Atypical chest discomfort morbid obesity hypertension ELEVATED D- DIMER Aortic regurgitation, moderate Ascending aortic aneurysm; 3.5cm Mild pulm HTN Chronic bronchitis/COPD History of Present Illness History of Present Illness Ms Garcia is a 43yo F w/ PMHx HTN, smoker, overweight who p/w chest pain. Patient reports intermittent sharp pain in her right chest since 02/13/19 in the morning. No associated dizziness, diaphoresis, or nausea/vomiting. 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 Has noticed some bilateral LE edema recently. Does improved overnight. No history of CAD. CXR with no abnormalities, bilateral LE US negative for DVT, troponins and EKG not elevated. Found with bronchitis/COPD, improved with nebulizers and inhalers, negative VQ scan. Seen by cardiology, noted with mild 3.5cm ascending aortic aneursym and mild pulm HTN likely 2/2 her pulmonary disease. Discharged on steroids, inhalers. Vitals Vitals Vital Signs Date Time Temp Pulse Resp B/P (MAP) Pulse Ox O2 Delivery O2 Flow Rate FiO2 02/15/19 03:33 97.6 85 18 142/79 (100) 98 Room Air 97.6 Physical Exam General: Alert, Oriented X3, Cooperative, No acute distress Heart: Regular rate, Normal S1, Normal S2, No murmurs Abdomen: Soft Extremities: No cyanosis Skin: No significant lesion Labs LABS Laboratory Tests Test 02/14/19 09:45 Troponin I Quantitative 0.027 ng/mL (0.000-0.055) Comment Review of Relevant I have reviewed the following items john paul (where applicable) has been applied. Labs Laboratory Tests Test 02/14/19 02:00 02/14/19 04:15 02/14/19 07:25 02/14/19 09:45 White Blood Count 8.6 x10^3/uL (4.0-11.0) Red Blood Count 4.96 x10^6/uL (3.50-5.40) Hemoglobin 14.0 g/dL (12.0-15.5) Hematocrit 41.2 % (36.0-47.0) Mean Corpuscular Volume 83 fL (79-100) Mean Corpuscular Hemoglobin 28 pg (25-35) Mean Corpuscular Hemoglobin Concent 34 g/dL (31-37) Red Cell Distribution Width 14.1 % (11.5-14.5) Platelet Count 269 x10^3/uL (140-400) Neutrophils (%) (Auto) 54 % (31-73) Lymphocytes (%) (Auto) 35 % (24-48) Monocytes (%) (Auto) 8 % (0-9) Eosinophils (%) (Auto) 2 % (0-3) Basophils (%) (Auto) 0 % (0-3) Neutrophils # (Auto) 4.7 x10^3/uL (1.8-7.7) Lymphocytes # (Auto) 3.0 x10^3/uL (1.0-4.8) Monocytes # (Auto) 0.7 x10^3/uL (0.0-1.1) Eosinophils # (Auto) 0.2 x10^3/uL (0.0-0.7) Basophils # (Auto) 0.0 x10^3/uL (0.0-0.2) Prothrombin Time 12.7 SEC (11.7-14.0) Prothromb Time International Ratio 1.0 (0.8-1.1) Activated Partial Thromboplast Time 35 SEC (24-38) D-Dimer (Stephany) 0.79 ug/mlFEU (0.00-0.50) Sodium Level 141 mmol/L (136-145) Potassium Level 3.7 mmol/L (3.5-5.1) Chloride Level 103 mmol/L (98-107) Carbon Dioxide Level 24 mmol/L (21-32) Anion Gap 14 (6-14) Blood Urea Nitrogen 16 mg/dL (7-20) Creatinine 0.9 mg/dL (0.6-1.0) Estimated GFR (Cockcroft-Gault) 81.9 BUN/Creatinine Ratio 18 (6-20) Glucose Level 108 mg/dL (70-99) Calcium Level 9.1 mg/dL (8.5-10.1) Magnesium Level 1.8 mg/dL (1.8-2.4) Total Bilirubin 0.1 mg/dL (0.2-1.0) Aspartate Amino Transf (AST/SGOT) 19 U/L (15-37) Alanine Aminotransferase (ALT/SGPT) 33 U/L (14-59) Alkaline Phosphatase 80 U/L (46-116) Creatine Kinase 97 U/L (26-192) Creatine Kinase MB (Mass) 0.6 ng/mL (0.0-3.6) Creatine Kinase MB Relative Index 0.6 % (0-4) Troponin I Quantitative 0.041 ng/mL (0.000-0.055) 0.024 ng/mL (0.000-0.055) 0.027 ng/mL (0.000-0.055) DU-Xol-Z-Type Natriuretic Peptide 32 pg/mL (0-124) Total Protein 8.2 g/dL (6.4-8.2) Albumin 3.9 g/dL (3.4-5.0) Albumin/Globulin Ratio 0.9 (1.0-1.7) Lipase 127 U/L (73-393) Urine Collection Type Unknown Urine Color Yellow Urine Clarity Clear Urine pH 6.5 Urine Specific [place] 1.015 Urine Protein Negative mg/dL (NEG-TRACE) Urine Glucose (UA) Negative mg/dL (NEG) Urine Ketones (Stick) Negative mg/dL (NEG) Urine Blood Negative (NEG) Urine Nitrite Negative (NEG) Urine Bilirubin Negative (NEG) Urine Urobilinogen Dipstick 1.0 mg/dL (0.2 mg/dL) Urine Leukocyte Esterase Negative (NEG) Urine RBC 0 /HPF (0-2) Urine WBC 1-4 /HPF (0-4) Urine Squamous Epithelial Cells Mod /LPF Urine Bacteria 0 /HPF (0-FEW) Urine Mucus Slight /LPF Triglycerides Level 109 mg/dL (0-150) Cholesterol Level 173 mg/dL (0-200) LDL Cholesterol, Calculated 102 mg/dL (0-100) VLDL Cholesterol, Calculated 22 mg/dL (0-40) Non-HDL Cholesterol Calculated 124 mg/dL (0-129) HDL Cholesterol 49 mg/dL (40-60) Cholesterol/HDL Ratio 3.5 Laboratory Tests Test 02/14/19 09:45 Troponin I Quantitative 0.027 ng/mL (0.000-0.055) Medications Current Medications Aspirin (Ashely Aspirin) 325 mg 1X ONCE PO Last administered on 02/14/19at 02:42; Start 02/14/19 at 02:30; Stop 02/14/19 at 02:31; Status DC Sodium Chloride 1,000 ml @ 1,000 mls/hr 1X ONCE IV Last administered on 02/14/19at 02:42; Start 02/14/19 at 02:30; Stop 02/14/19 at 03:29; Status DC Iohexol (Omnipaque 300 Mg/ml) 75 ml 1X ONCE IV ; Start 02/14/19 at 03:30; Stop 02/14/19 at 03:31; Status Cancel Info (CONTRAST GIVEN -- Rx MONITORING) 1 each PRN DAILY PRN MC SEE COMMENTS; Start 02/14/19 at 03:15; Stop 02/16/19 at 03:14; Status Cancel Ondansetron HCl (Zofran) 4 mg PRN Q8HRS PRN IV NAUSEA/VOMITING 1ST CHOICE; Start 02/14/19 at 03:45; Stop 02/15/19 at 03:44; Status DC Fentanyl Citrate (Fentanyl 2ml Vial) 50 mcg PRN Q2HRS PRN IV SEVERE PAIN 7-10; Start 02/14/19 at 03:45 Enoxaparin Sodium (Lovenox 40mg Syringe) 40 mg Q24H SQ ; Start 02/14/19 at 14:00 Albuterol Sulfate (Ventolin Neb Soln) 2.5 mg Q4HRS NEB Last administered on 02/15/19at 00:25; Start 02/14/19 at 16:00 Amlodipine Besylate (Norvasc) 10 mg DAILY PO ; Start 02/14/19 at 15:00 Hydrochlorothiazide (Microzide) 12.5 mg DAILY PO ; Start 02/14/19 at 15:00 Acetaminophen/ Hydrocodone Bitart (Lortab 5/325) 1 tab PRN Q6HRS PRN PO PAIN; Start 02/14/19 at 15:00 Non-Formulary Medication (Albuterol Sulfate (Albuterol Sulfate Conc Neb Soln)) 1 vial Q4HRS NEB ; Start 02/14/19 at 16:00; Status UNV Active Scripts Active Albuterol Sulfate Conc Neb Soln (Albuterol Sulfate) 2.5 Mg/0.5 Ml Vial.neb 1 Vial NEB Q4HRS Tussionex Pennkinetic Susp (Hydrocodone/Chlorphen Polis) 480 Ml Cassandra.er.12h 5 Ml PO BID PRN Prednisone 50 Mg Tablet 50 Mg PO DAILY 5 Days Hydrocodone-Apap 5-325 (Hydrocodone Bit/Acetaminophen) 1 Each Tablet 1 Tab PO PRN Q4-6HRS PRN Reported Proair Hfa Inhaler (Albuterol Sulfate) 8.5 Gm Hfa.aer.ad 2 Puff PO Q4HRS Hydrochlorothiazide 12.5 Mg Capsule 12.5 Mg PO DAILY Amlodipine Besylate 10 Mg Tablet 10 Mg PO DAILY Unable To Obtain Meds From Prior To Admit (Info) Each 1 Each Vitals/I & O Vital Sign - Last 24 Hours 02/14/19 02/14/19 02/14/19 02/14/19 08:30 09:00 09:30 10:00 Pulse 68 68 76 70 Resp 16 B/P (MAP) 128/78 (95) 140/90 (107) 159/72 (101) 112/53 (72) Pulse Ox 97 97 97 97 O2 Delivery Room Air Room Air Room Air Room Air 02/14/19 02/14/19 02/14/19 02/14/19 10:54 11:54 12:24 13:15 Temp 98.1 98.1 Pulse 74 68 76 71 Resp 18 B/P (MAP) 106/56 (73) 123/74 (90) 130/78 (95) 136/82 (100) Pulse Ox 97 95 97 96 O2 Delivery Room Air Room Air Room Air 02/14/19 02/14/19 02/14/19 02/14/19 14:30 15:00 16:36 19:05 Temp 98.4 98.1 98.4 98.1 Pulse 81 73 Resp 18 19 B/P (MAP) 132/76 (94) 117/67 (84) Pulse Ox 95 98 100 O2 Delivery Room Air Room Air Room Air Room Air 02/14/19 02/14/19 02/14/19 02/15/19 19:44 20:05 23:35 00:25 Temp 98.4 98.4 Pulse 99 Resp 18 B/P (MAP) 151/84 (106) Pulse Ox 98 O2 Delivery Room Air Room Air Room Air Room Air 02/15/19 03:33 Temp 97.6 97.6 Pulse 85 Resp 18 B/P (MAP) 142/79 (100) Pulse Ox 98 O2 Delivery Room Air Intake and Output 02/14/19 02/14/19 02/15/19 14:59 22:59 06:59 Intake Total 840 ml Balance 840 ml CECILE NINO MD Feb 15, 2019 08:10
--- NOTE | 2019-02-15 08:56 | CARD ---
MR#: [id number] Date of Study: 02/15/2019 Ordering Physician: JONATAN JEROME, Referring Physician: BONIFACIO CLARK Tech: Justyna Harris RDCS APPROVED REPORT EXAM: Two-dimensional and M-mode echocardiogram with Doppler and color Doppler. Other Information Quality : Good INDICATION Chest Pain 2D DIMENSIONS RVDd2.2 (2.9-3.5cm)Left Atrium(2D)3.6 (1.6-4.0cm) IVSd1.0 (0.7-1.1cm)Aortic Root(2D)2.9 (2.0-3.7cm) LVDd4.7 (3.9-5.9cm)LVOT Diameter2.0 (1.8-2.4cm) PWd1.0 (0.7-1.1cm)LVDs2.8 (2.5-4.0cm) FS (%) 30.0 %SV73.5 ml LVEF(%)60.0 (>50%) Aortic Valve AoV Peak Willie.152.4cm/sAoV VTI30.2cm AO Peak GR.9.3mmHgLVOT Peak Willie.131.3cm/s LVOT VTI 29.87cmAO Mean GR.5mmHg BOBBY (VMAX)2.98sk4TQE (VTI)3.12cm2 AI P 1/2 [id number] Mitral Valve MV E Upgklhds51.8cm/sMV DECEL [id number] MV A Churctyx56.2cm/sMV JSQ54qh E/A Ratio1.4MVA (PHT)3.81cm2 TDI E/Lateral E'7.0E/Medial E'9.1 Tricuspid Valve TR P. Rhhqpggk620jv/sRAP OWPCXGVQ8ybGm TR Peak Gr.96bbUdQVMJ45jjYh Pulmonary Vein S1 Rgnsvjrh24.7cm/sD2 Qhmhckte26.2cm/s LEFT VENTRICLE The left ventricle is normal size. There is normal left ventricular wall thickness. The left ventricu lar systolic function is normal and the ejection fraction is within normal range. The Ejection Fracti on is 55-60%. There is normal LV segmental wall motion. The left ventricular diastolic function and f illing is normal for age. RIGHT VENTRICLE The right ventricle is normal size. The right ventricular systolic function is normal. ATRIA The left atrium size is normal. The right atrium size is normal. The interatrial septum is intact wit h no evidence for an atrial septal defect or patent foramen ovale as noted on 2-D or Doppler imaging. AORTIC VALVE The aortic valve is trileaflet and calcified but opens well. Doppler and Color Flow revealed moderate aortic regurgitation. There is no significant aortic valvular stenosis. MITRAL VALVE The mitral valve is normal in structure and function. There is no evidence of mitral valve prolapse. There is no mitral valve stenosis. Doppler and Color-flow revealed mild mitral regurgitation. TRICUSPID VALVE The tricuspid valve is normal in structure and function. Doppler and Color Flow revealed mild tricusp id regurgitation. There is mild pulmonary hypertension. The PA pressure was estimated at 34 mmHg. The re is no tricuspid valve stenosis. PULMONIC VALVE Doppler and Color Flow revealed trace pulmonic valvular regurgitation. There is no pulmonic valvular stenosis. GREAT VESSELS The aortic root is normal in size. The ascending aorta is mildly dilated at 3.5 cm. The IVC is normal in size and collapses >50% with inspiration. PERICARDIAL EFFUSION There is no evidence of significant pericardial effusion. Critical Notification Critical Value: No <Conclusion> The left ventricular systolic function is normal and the ejection fraction is within normal range. Th e Ejection Fraction is 55-60%. There is normal LV segmental wall motion. Doppler and Color Flow revealed moderate aortic regurgitation. Doppler and Color Flow revealed mild tricuspid regurgitation. There is mild pulmonary hypertension. T he PA pressure was estimated at 34 mmHg. The ascending aorta is mildly dilated at 3.5 cm. Signed by : Jose Antonio Olivier, Electronically Approved : 02/15/2019 08:56:14
--- NOTE | 2019-02-15 08:58 | RAD ---
ABDOMEN COMPLETE History: Right chest pain. Comparison: None. Technique: Sonographic examination of the abdomen was performed and multiple grayscale and color Doppler static images were obtained. Findings: Liver is visualized and is homogeneous. The liver measures 14.2 cm. Portal flow is patent Common bile duct is normal in caliber, measuring 2.5 mm in diameter. Gallbladder wall is normal. No cholelithiasis or pericholecystic fluid. Pancreas is not well-visualized due to overlying bowel gas. The right kidney is normal in echotexture and measures 10.3 5.1 x 5.0 cm. The left kidney is normal in echotexture and measures 10.7 x 4.9 x 5.3 cm. No hydronephrosis. No solid renal mass or cyst. No calculus. The spleen measures 8.1 cm. Visualized portions of the abdominal aorta and IVC are normal. IMPRESSION: 1. Unremarkable abdominal ultrasound. Electronically signed by: Uche Gorman DO (02/15/2019 8:56 AM) [facility]
[2019-02-15] MEDS: hydroCHLOROthiazide 12.5 MG CAPSULE PO SCH (10:04)
[2019-02-15] MEDS: amLODIPine BESYLATE 10 MG TABLET PO SCH (10:05)
--- NOTE | 2019-02-15 10:53 | CARD ---
APPROVED REPORT EXAM: Two-dimensional and M-mode echocardiogram with Doppler and color Doppler. Other Information Quality : Good INDICATION Chest Pain 2D DIMENSIONS RVDd 2.2 (2.9-3.5cm) Left Atrium(2D) 3.6 (1.6-4.0cm) IVSd 1.0 (0.7-1.1cm) Aortic Root(2D) 2.9 (2.0-3.7cm) LVDd 4.7 (3.9-5.9cm) LVOT Diameter 2.0 (1.8-2.4cm) PWd 1.0 (0.7-1.1cm) LVDs 2.8 (2.5-4.0cm) FS (%) 30.0 % SV 73.5 ml LVEF(%) 60.0 (>50%) Aortic Valve AoV Peak Willie. 152.4cm/s AoV VTI 30.2cm AO Peak GR. 9.3mmHg LVOT Peak Willie. 131.3cm/s LVOT VTI 29.87cm AO Mean GR. 5mmHg BOBBY (VMAX) 2.72cm2 BOBBY (VTI) 3.12cm2 AI P 1/2 Time 435ms Mitral Valve MV E Velocity 86.8cm/s MV DECEL TIME 199ms MV A Velocity 64.2cm/s MV PHT 58ms E/A Ratio 1.4 MVA (PHT) 3.81cm2 TDI E/Lateral E' 7.0 E/Medial E' 9.1 Tricuspid Valve TR P. Velocity 279cm/s RAP ESTIMATE 3mmHg TR Peak Gr. 31mmHg RVSP 34mmHg Pulmonary Vein S1 Velocity 92.7cm/s D2 Velocity 42.2cm/s LEFT VENTRICLE The left ventricle is normal size. There is normal left ventricular wall thickness. The left ventricular systolic function is normal and the ejection fraction is within normal range. The Ejection Fraction is 55-60%. There is normal LV segmental wall motion. The left ventricular diastolic function and filling is normal for age. RIGHT VENTRICLE The right ventricle is normal size. The right ventricular systolic function is normal. ATRIA The left atrium size is normal. The right atrium size is normal. The interatrial septum is intact with no evidence for an atrial septal defect or patent foramen ovale as noted on 2-D or Doppler imaging. AORTIC VALVE The aortic valve is trileaflet and calcified but opens well. Doppler and Color Flow revealed moderate aortic regurgitation. There is no significant aortic valvular stenosis. MITRAL VALVE The mitral valve is normal in structure and function. There is no evidence of mitral valve prolapse. There is no mitral valve stenosis. Doppler and Color-flow revealed mild mitral regurgitation. TRICUSPID VALVE The tricuspid valve is normal in structure and function. Doppler and Color Flow revealed mild tricuspid regurgitation. There is mild pulmonary hypertension. The PA pressure was estimated at 34 mmHg. There is no tricuspid valve stenosis. PULMONIC VALVE Doppler and Color Flow revealed trace pulmonic valvular regurgitation. There is no pulmonic valvular stenosis. GREAT VESSELS The aortic root is normal in size. The ascending aorta is mildly dilated at 3.5 cm. The IVC is normal in size and collapses >50% with inspiration. PERICARDIAL EFFUSION There is no evidence of significant pericardial effusion. Critical Notification Critical Value: No <Conclusion> The left ventricular systolic function is normal and the ejection fraction is within normal range. The Ejection Fraction is 55-60%. There is normal LV segmental wall motion. Doppler and Color Flow revealed moderate aortic regurgitation. Doppler and Color Flow revealed mild tricuspid regurgitation. There is mild pulmonary hypertension. The PA pressure was estimated at 34 mmHg. The ascending aorta is mildly dilated at 3.5 cm. Signed by : Jose Antonio Olivier, Electronically Approved : 02/15/2019 08:56:14 ALISON
[2019-02-15 11:00] VITALS: BP 124/74
--- NOTE | 2019-02-15 11:11 | RAD ---
Examination: LUNG VENT/PERFUSION SCAN(VQ) History: Chest pain, elevated d-dimer Comparison/Correlation: 02/14/2019 two-view chest x-ray exam Findings: 17 mCi xenon-133 gas was utilized for ventilation imaging. Imaging was performed in anterior and posterior projections. Delayed washout radiotracer compatible COPD is noted. No significant ventilation defect delineated. 5.5 mCi technetium 99m MAA was intravenously administered for purposes of perfusion imaging. There is no significant perfusion defect identified. No mismatch defect. Impression: Delayed washout radiotracer concern for COPD. Low probability for pulmonary embolism. Electronically signed by: Cayetano Aguilar MD (02/15/2019 11:08 AM) [facility]
--- NOTE | 2019-02-15 12:19 | NUR ---
SS following for discharge planning. SS reviewed pt chart. Pt is a self pay pt. HCFS following for self pay status. Pt is from home and is currently on room air. No discharge needs noted at this time. SS will continue to follow for discharge planning.
--- NOTE | 2019-02-15 13:23 | PDOC ---
JONATAN JEROME APRN 02/15/19 1323: CARDIO Progress Notes Date and Time Date of Service 02/16/16 Time of Evaluation 1310 Subjective Subjective: No Chest Pain, No shortness of breath Vitals Vitals Vital Signs Date Time Temp Pulse Resp B/P (MAP) Pulse Ox O2 Delivery O2 Flow Rate FiO2 02/15/19 12:31 98 Room Air 02/15/19 11:00 98.2 80 18 124/74 (91) 98.2 Weight Weight [ ] Input and Output Intake and Output Intake and Output 02/15/19 07:00 Intake Total 840 ml Balance 840 ml Intake Oral 840 ml # Voids 2 Physical Exam HEENT: Neck Supple W Full Motion Chest: Symmetric LUNGS: Clear to Auscultation Heart: S1S2, RRR Abdomen: Soft N/T Extremities: No Edema Neurology: alert, oriented, follow commands Assessment Assessment 1. Chest pain, atypical. Trop series negative AMI ruled out. Echo showed preserved LV systolic function with an EF of 55-60% 2. Hypertension; controlled 3. Aortic regurgitation, moderate 4. Ascending aortic aneurysm; 3.5cm Recommendations ASA Risk factor modification Will arrange for outpatient stress test and follow up with Dr. Pineda as scheduled May discharge from a CV standpoint. MARGARITO PINEDA MD 02/15/19 1949: CARDIO Progress Notes Assessment Assessment Patient seen and examined. Agree with EQUIPMENT MAINTENANCE SUPERINTENDENT's assessment and plan, 2D echo showed normal LVF without any WMA Plan outpatient ischemic evaluation JONATAN JEROME APRN Feb 15, 2019 13:23 MARGARITO PINEDA MD Feb 15, 2019 19:49
--- NOTE | 2019-02-15 14:32 | PDOC3 ---
Discharge Summary Visit Information Date of Admission: Feb 14, 2019 Date of Discharge: Feb 15, 2019 Admitting Diagnosis: Chest pain, shortness of breath Final Diagnosis Bronchitis Brief Hospital Course Allergies Allergies Coded Allergies Type Severity Reaction Last Updated Verified Iodinated Contrast- Oral and IV Dye Allergy Severe ANAPHALAXIS 02/14/19 Yes Vital Signs Vital Signs Date Time Temp Pulse Resp B/P (MAP) Pulse Ox O2 Delivery O2 Flow Rate FiO2 02/15/19 12:31 98 Room Air 02/15/19 11:00 98.2 80 18 124/74 (91) 98.2 Lab Results Laboratory Tests Test 02/14/19 02:00 02/14/19 04:15 02/14/19 07:25 02/14/19 09:45 White Blood Count 8.6 x10^3/uL (4.0-11.0) Red Blood Count 4.96 x10^6/uL (3.50-5.40) Hemoglobin 14.0 g/dL (12.0-15.5) Hematocrit 41.2 % (36.0-47.0) Mean Corpuscular Volume 83 fL (79-100) Mean Corpuscular Hemoglobin 28 pg (25-35) Mean Corpuscular Hemoglobin Concent 34 g/dL (31-37) Red Cell Distribution Width 14.1 % (11.5-14.5) Platelet Count 269 x10^3/uL (140-400) Neutrophils (%) (Auto) 54 % (31-73) Lymphocytes (%) (Auto) 35 % (24-48) Monocytes (%) (Auto) 8 % (0-9) Eosinophils (%) (Auto) 2 % (0-3) Basophils (%) (Auto) 0 % (0-3) Neutrophils # (Auto) 4.7 x10^3/uL (1.8-7.7) Lymphocytes # (Auto) 3.0 x10^3/uL (1.0-4.8) Monocytes # (Auto) 0.7 x10^3/uL (0.0-1.1) Eosinophils # (Auto) 0.2 x10^3/uL (0.0-0.7) Basophils # (Auto) 0.0 x10^3/uL (0.0-0.2) Prothrombin Time 12.7 SEC (11.7-14.0) Prothromb Time International Ratio 1.0 (0.8-1.1) Activated Partial Thromboplast Time 35 SEC (24-38) D-Dimer (Stephany) 0.79 ug/mlFEU (0.00-0.50) Sodium Level 141 mmol/L (136-145) Potassium Level 3.7 mmol/L (3.5-5.1) Chloride Level 103 mmol/L (98-107) Carbon Dioxide Level 24 mmol/L (21-32) Anion Gap 14 (6-14) Blood Urea Nitrogen 16 mg/dL (7-20) Creatinine 0.9 mg/dL (0.6-1.0) Estimated GFR (Cockcroft-Gault) 81.9 BUN/Creatinine Ratio 18 (6-20) Glucose Level 108 mg/dL (70-99) Calcium Level 9.1 mg/dL (8.5-10.1) Magnesium Level 1.8 mg/dL (1.8-2.4) Total Bilirubin 0.1 mg/dL (0.2-1.0) Aspartate Amino Transf (AST/SGOT) 19 U/L (15-37) Alanine Aminotransferase (ALT/SGPT) 33 U/L (14-59) Alkaline Phosphatase 80 U/L (46-116) Creatine Kinase 97 U/L (26-192) Creatine Kinase MB (Mass) 0.6 ng/mL (0.0-3.6) Creatine Kinase MB Relative Index 0.6 % (0-4) Troponin I Quantitative 0.041 ng/mL (0.000-0.055) 0.024 ng/mL (0.000-0.055) 0.027 ng/mL (0.000-0.055) LT-Hht-F-Type Natriuretic Peptide 32 pg/mL (0-124) Total Protein 8.2 g/dL (6.4-8.2) Albumin 3.9 g/dL (3.4-5.0) Albumin/Globulin Ratio 0.9 (1.0-1.7) Lipase 127 U/L (73-393) Urine Collection Type Unknown Urine Color Yellow Urine Clarity Clear Urine pH 6.5 Urine Specific [place] 1.015 Urine Protein Negative mg/dL (NEG-TRACE) Urine Glucose (UA) Negative mg/dL (NEG) Urine Ketones (Stick) Negative mg/dL (NEG) Urine Blood Negative (NEG) Urine Nitrite Negative (NEG) Urine Bilirubin Negative (NEG) Urine Urobilinogen Dipstick 1.0 mg/dL (0.2 mg/dL) Urine Leukocyte Esterase Negative (NEG) Urine RBC 0 /HPF (0-2) Urine WBC 1-4 /HPF (0-4) Urine Squamous Epithelial Cells Mod /LPF Urine Bacteria 0 /HPF (0-FEW) Urine Mucus Slight /LPF Triglycerides Level 109 mg/dL (0-150) Cholesterol Level 173 mg/dL (0-200) LDL Cholesterol, Calculated 102 mg/dL (0-100) VLDL Cholesterol, Calculated 22 mg/dL (0-40) Non-HDL Cholesterol Calculated 124 mg/dL (0-129) HDL Cholesterol 49 mg/dL (40-60) Cholesterol/HDL Ratio 3.5 Brief Hospital Course Ms Garcia is a 43yo F w/ PMHx HTN, smoker, overweight who p/w chest pain. Patient reports intermittent sharp pain in her right chest since 02/13/19 in the morning. No associated dizziness, diaphoresis, or nausea/vomiting. Works in a [employer] from [facility], worked 9 days in a row, felt this is anxiety related, but wanted further reassurance. Has noticed some bilateral LE edema recently. Does improved overnight. No history of CAD. CXR with no abnormalities, bilateral LE US negative for DVT, troponins and EKG not elevated. Found with bronchitis/COPD, improved with nebulizers and inhalers, negative VQ scan. Seen by cardiology, noted with mild 3.5cm ascending aortic aneursym and mild pulm HTN likely 2/2 her pulmonary disease. Discharged on steroids, inhalers. Atypical chest discomfort morbid obesity hypertension ELEVATED D- DIMER Aortic regurgitation, moderate Ascending aortic aneurysm; 3.5cm Mild pulm HTN Chronic bronchitis/COPD Greater than 30 minutes spent on discharge. Discharge Information Condition at Discharge: Improved Follow Up: Weeks (1) Disposition/Orders: D/C to Home Scheduled Albuterol Sulfate (Albuterol Sulfate Conc Neb Soln) 2.5 Mg/0.5 Ml Vial.neb, 1 VIAL NEB Q4HRS for wheezing, #60 Ref 1 Prescribed by: GOPAL LIEBERMAN on 09/13/16 2573 Last Action: Converted on 02/14/19 145 by BONIFACIO CLARK MD Albuterol Sulfate (Proair Hfa Inhaler) 8.5 Gm Hfa.aer.ad, 2 PUFF PO Q4HRS for SHORTNESS OF BREATH, (Reported) Entered as Reported by: Geo Beverly on 02/14/191400 Last Taken: 2 PUFFS on Unknown Date & Time Last Action: Continued on 02/14/191451 by BONIFACIO CLARK MD Amlodipine Besylate (Amlodipine Besylate) 10 Mg Tablet, 10 MG PO DAILY for HYPERTENSION, (Reported) Entered as Reported by: Geo Beverly on 02/14/191400 Last Taken: 10 on Unknown Date & Time Last Action: Continued on 02/14/191451 by BONIFACIO CLARK MD Hydrochlorothiazide (Hydrochlorothiazide) 12.5 Mg Capsule, 12.5 MG PO DAILY for HYPERTENSION, (Reported) Entered as Reported by: Geo Beverly on 02/14/191400 Last Taken: 12.5 on Unknown Date & Time Last Action: Continued on 02/14/191451 by BONIFACIO CLARK MD Discontinued Medications Hydrocodone Bit/Acetaminophen (Hydrocodone-Apap 5-325 ) 1 Each Tablet, 1 TAB PO PRN Q4-6HRS PRN for PAIN, #14 Prescribed by: TIAN ALVARADO MD on 05/13/162104 Last Action: Continued on 02/14/191451 by BONIFACIO CLARK MD Hydrocodone/Chlorphen Polis (Tussionex Pennkinetic Susp) 480 Ml Cassandra.er.12h, 5 ML PO BID PRN for COUGH, #120 Prescribed by: GOPAL LIEBERMAN on 09/13/161753 Last Action: HELD on 02/14/191451 by BONIFACIO CLARK MD Info (Unable To Obtain Meds From Prior To Admit) Each, 1 EACH MC, (Reported) Entered as Reported by: YADIEL KELLY on 02/14/19403 Last Action: New Order on 02/14/19403 by YADIEL KELLY Prednisone (Prednisone) 50 Mg Tablet, 50 MG PO DAILY for 5 Days Prescribed by: GOPAL LIEBERMAN on 09/13/161753 Last Action: HELD on 02/14/191451 by MD MICA AYALA CHRISTOPHER S MD Feb 15, 2019 14:32
[2019-02-15 15:00] VITALS: BP 130/72
[2019-02-15] MEDS ORDERED: ALBU2.5V5 NEB (16:06)
[2019-02-15] MEDS ORDERED: BUDE0.5A3 NEB (16:06)
--- NOTE | 2019-02-15 16:15 | NUR ---
Discharge Note: RADHA BETANCOURT [address] Discharge instructions and discharge home medications reviewed with Patient and a copy given. All questions have been answered and understanding verbalized. The following instructions and handouts were given: Chest pain and stress test Discontinued iv lines and catheter intact. Patient discharged to home with self-care via private vehicle.
== END 2019-02-15 17:05 | disposition home or self-care (01) | DRG 313 ==
LOC: ER 01:51 → ED HOLD 03:38 → 2 SOUTH 12:44
PROVIDERS: ADMIT Family Medicine; ATTEND Family Medicine
DX: R07.89 Other chest pain (principal); J42 Unspecified chronic bronchitis; E66.01 Morbid (severe) obesity due to excess calories; F17.210 Nicotine dependence, cigarettes, uncomplicated; M19.90 Unspecified osteoarthritis, unspecified site; F41.9 Anxiety disorder, unspecified; I10 Essential (primary) hypertension; I27.20 Pulmonary hypertension, unspecified; I35.1 Nonrheumatic aortic (valve) insufficiency; I71.2 Thoracic aortic aneurysm, without rupture; Z82.49 Family history of ischemic heart disease and other diseases of the circulatory system; Z68.37 Body mass index [BMI] 37.0-37.9, adult
CPT/HCPCS: 36415; 71046; 76700; 78582; 80053; 80061; 81001; 82553; 83690; 83735; 83880; 84484; 85025; 85379; 85610; 85730; 93005; 93306; 93970; 94640; 94760; 96374; A9540; A9558; J7030; J7613; G0378

== ENCOUNTER 2019-05-06 08:01 | Emergency (ER) | payer OTHER ==
[~2019-05-06] VITALS: Ht 154.9 cm; Wt 87.1 kg
[~2019-05-06 08:01] MED LIST changes: +ALBU2.5V5 NEB; +ALBU2.5V8 PO; +AMLO10TA8 PO; +BUDE0.5A3 NEB; +HYDR12.59 PO; +UNABLE MC
[2019-05-06] MEDS ORDERED: HYDR30CR61 TP (08:24)
[2019-05-06] MEDS ORDERED: POLY17PO29 PO (08:24)
[2019-05-06] MEDS ORDERED: HYDR-3164 PO (08:24)
[2019-05-06] MEDS ORDERED: LIDO15SO2 PR (08:26)
--- NOTE | 2019-05-06 08:26 | PHYS DOC ---
Past Medical History Past Medical History: Asthma, Hypertension Past Surgical History: Other Additional Past Surgical Histo: CYST REMOVAL Alcohol Use: Occasionally Drug Use: None Adult General Chief Complaint Chief Complaint: HEMORRHOIDS HPI HPI Patient is a 43-year-old female who presents with complaint of rectal pain. Patient states that she has been having hemorrhoids in the past and she has taken Metamucil without any relief. She states that pain is worsened when she is on her feet. She rates pain as moderate and at times severe.[] Review of Systems Review of Systems Constitutional: Denies fever or chills [] Respiratory: Denies cough or shortness of breath [] Cardiovascular: No additional information not addressed in HPI [] GI: Denies abdominal pain, nausea, vomiting or diarrhea. Complains of rectal pain. [] Integument: Denies rash or skin lesions [] Allergies Allergies Allergies Coded Allergies Type Severity Reaction Last Updated Verified Iodinated Contrast Media Allergy Severe ANAPHALAXIS 02/14/19 Yes Physical Exam Physical Exam Constitutional: Well developed, well nourished, no acute distress, non-toxic appearance. [] Cardiovascular:Heart rate regular rhythm, no murmur [] Lungs & Thorax: Bilateral breath sounds clear to auscultation [] Abdomen: Bowel sounds normal, soft, no tenderness. Rectal exam performed with nurse accountant bookkeeper present and demonstrates moderate sized external thrombosed hemorrhoid. [] Skin: Warm, dry, no erythema, no rash. [] Current Patient Data Vital Signs Vital Signs Date Time Temp Pulse Resp B/P (MAP) Pulse Ox O2 Delivery O2 Flow Rate FiO2 05/06/19 08:55 88 20 182/95 (124) 96 Room Air 05/06/19 08:10 97.7 97.7 EKG EKG [] Radiology/Procedures Radiology/Procedures [] Course & Med Decision Making Course & Med Decision Making Pertinent Labs and Imaging studies reviewed. (See chart for details) [] Dragon Disclaimer Dragon Disclaimer This electronic medical record was generated, in whole or in part, using a voice recognition dictation system. Departure Departure Impression: Primary Impression: Thrombosed external hemorrhoid Disposition: 01 HOME, SELF-CARE Condition: STABLE Referrals: NO PCP (PCP) Patient Instructions: Hemorrhoids Scripts Lidocaine HCl (Lidocaine HCl Viscous) 15 Ml Solution 1 ML OK Q2HR PRN for PAIN, #100 ML Prov: SADI BARBER Jr. DO 05/06/19 Polyethylene Glycol 3350 (MIRALAX) 17 Gm Powd.pack 1 PKT PO DAILY, #10 PKT Prov: SADI BARBER Jr. DO 05/06/19 Hydrocodone/Apap 5-325 (NORCO 5-325 TABLET) 1 Each Tablet 1 EACH PO PRN Q6HRS PRN for PAIN, #15 as needed for pain Prov: SADI BARBER Jr. DO 05/06/19 Hydrocortisone (ANUSOL-HC) 30 Gm Cream..g. 1 ALFONSO TP BID, #30 GM 0 Refills Prov: SADI BARBER Jr. DO 05/06/19 SADI BARBER Jr. DO May 06, 2019 08:26
[2019-05-06 08:55] VITALS: BP 182/95
== END 2019-05-06 09:00 | disposition home or self-care (01) ==
LOC: ER 08:01
DX: K64.5 Perianal venous thrombosis (principal); J45.909 Unspecified asthma, uncomplicated; I10 Essential (primary) hypertension; Z91.041 Radiographic dye allergy status
CPT/HCPCS: 99283

== ENCOUNTER 2020-11-22 21:48 | Emergency (ER) | payer OTHER ==
[~2020-11-22] VITALS: Ht 154.9 cm; Wt 85.5 kg
[~2020-11-22 21:48] MED LIST changes: +ACET325T21 PO; +AMLO-187 PO; -AMLO10TA8 PO; +ASPI-886 PO; +ATOR20TA58 PO; +CLOP75TA PO; +DOCU-153 PO; +HYDR-3164 PO; +HYDR30CR61 TP; +ISOS30TA68 PO; +LIDO20SO10 PR; +LOSA1TAB25 PO; +MAG30ORA2 PO; +NAPR500T8 PO; +PANT40TA77 PO; +POLY17PO29 PO
[2020-11-22] MEDS ORDERED: IV NORMAL SALINE 1000ML BAG 1,000 ML IV ONE (22:30)
--- NOTE | 2020-11-22 22:39 | ED.ADGEN ---
Past Medical History Past Medical History: Arthritis (osteoarthritis), Asthma, GERD, High Cholesterol, Hypertension Additional Past Medical Histor: coronary spasms Past Surgical History: Other Additional Past Surgical Histo: CYST REMOVAL, heart catheterization x2 Smoking Status: Former Smoker Alcohol Use: Occasionally Drug Use: None General Adult EDM: Chief Complaint: OTHER COMPLAINTS HPI: HPI: Patient is a 45 year old AA female who presents emergency department with complaints of feeling jittery and having high blood pressure all day today. Patient states that she has been admitted to this hospital twice recently after having chest pain and elevated troponin. She reports that she had to negative heart caths at this facility. Patient states today she started taking Lipitor for the first time after being discharged from this facility on October 27. Patient states that the pharmacy did not fill the medication when it was initially prescribed as well as she did not take it until today. When she woke up at 1530 this afternoon and checked her blood pressure, her blood pressure was higher than it normally is. Patient states she ate some eggs and 1/2 piece of sausage went back to sleep and when she woke up again her blood pressure remai imelda high. She continued to check it throughout the day and her blood pressure has continued to be high all day. She denies any vision changes headache, numbness, tingling, weakness, dizziness, syncope, shortness of breath, chest pain, cough, palpitations, nausea, vomiting, diarrhea, extremity swelling, or abdominal pain. She denies any fever, body aches, or fatigue. She currently denies any pain. Patient denies any illicit drug use, alcohol consumption, caffeine intake, smoking, or taking of cold medicine. She states she has not taken her albuterol today. Review of Systems: Review of Systems: Complete ROS is negative unless otherwise noted in HPI. Current Medications: Current Medications Medications (Trade) Dose Ordered Sig/Cj Start Time Stop Time Status Last Admin Dose Admin Lorazepam (Ativan Inj) 1 mg 1X ONCE 11/22/20 22:30 11/22/20 22:32 DC 11/22/20 22:45 1 MG Sodium Chloride 1,000 ml @ 1,000 mls/hr 1X ONCE 11/22/20 22:30 11/22/20 23:29 DC 11/22/20 22:43 1,000 MLS/HR Allergies: Allergies: Allergies Coded Allergies Type Severity Reaction Last Updated Verified Iodinated Contrast Media Allergy Severe Rash 10/26/20 Yes Physical Exam: PE: See Above Constitutional: Well developed, well nourished, no acute distress, non-toxic appearance, appears anxious. [] HENT: Normocephalic, atraumatic, bilateral external ears normal, nose normal. [] Eyes: PERRLA, EOMI, conjunctiva normal, no discharge. [] Neck: Normal range of motion, no stridor. [] Cardiovascular: Sinus arrhythmia Lungs & Thorax: Respirations even and unlabored, no retractions, no respiratory distress, no wheezing Abdomen: soft, no tenderness Skin: Warm, dry, no erythema, no rash. [] Extremities: No cyanosis, ROM intact, no edema. [] Neurologic: Alert and oriented X 3, normal motor, normal sensory, no focal deficits noted. [] Psychologic: Affect anxious, judgement normal, mood normal. [] Current Patient Data: Labs: Laboratory Tests Test 11/22/20 22:35 White Blood Count 3.9 x10^3/uL (4.0-11.0) L Red Blood Count 4.87 x10^6/uL (3.50-5.40) Hemoglobin 12.8 g/dL (12.0-15.5) Hematocrit 39.0 % (36.0-47.0) Mean Corpuscular Volume 80 fL (79-100) Mean Corpuscular Hemoglobin 26 pg (25-35) Mean Corpuscular Hemoglobin Concent 33 g/dL (31-37) Red Cell Distribution Width 14.8 % (11.5-14.5) H Platelet Count 271 x10^3/uL (140-400) Neutrophils (%) (Auto) 43 % (31-73) Lymphocytes (%) (Auto) 38 % (24-48) Monocytes (%) (Auto) 15 % (0-9) H Eosinophils (%) (Auto) 2 % (0-3) Basophils (%) (Auto) 1 % (0-3) Neutrophils # (Auto) 1.7 x10^3/uL (1.8-7.7) L Lymphocytes # (Auto) 1.5 x10^3/uL (1.0-4.8) Monocytes # (Auto) 0.6 x10^3/uL (0.0-1.1) Eosinophils # (Auto) 0.1 x10^3/uL (0.0-0.7) Basophils # (Auto) 0.1 x10^3/uL (0.0-0.2) Sodium Level 141 mmol/L (136-145) Potassium Level 3.4 mmol/L (3.5-5.1) L Chloride Level 103 mmol/L (98-107) Carbon Dioxide Level 26 mmol/L (21-32) Anion Gap 12 (6-14) Blood Urea Nitrogen 7 mg/dL (7-20) Creatinine 0.7 mg/dL (0.6-1.0) Estimated GFR (Cockcroft-Gault) 108.5 Glucose Level 86 mg/dL (70-99) Calcium Level 8.8 mg/dL (8.5-10.1) Magnesium Level 1.8 mg/dL (1.8-2.4) Creatine Kinase 89 U/L (26-192) Creatine Kinase MB (Mass) 0.9 ng/mL (0.0-3.6) Creatine Kinase MB Relative Index 1.0 % (0-4) Troponin I Quantitative 0.022 ng/mL (0.000-0.055) Laboratory Tests 11/22/20 22:35 Laboratory Tests 11/22/20 22:35 Vital Signs: Vital Signs Date Time Temp Pulse Resp B/P (MAP) Pulse Ox O2 Delivery O2 Flow Rate FiO2 11/22/20 21:55 98.4 99 16 155/88 (110) Room Air 98.4 EKG: EK-sinus rhythm, rate 89, QRST abnormality consider anterolateral myocardial damage, no STEMI, read by Dr. Castellano [] Heart Score: C/O Chest Pain: No Risk Scores: Score 0 - 3: 2.5% MACE over next 6 weeks - Discharge Home Score 4 - 6: 20.3% MACE over next 6 weeks - Admit for Clinical Observation Score 7 - 10: 72.7% MACE over next 6 weeks - Early Invasive Strategies Radiology/Procedures: Radiology/Procedures: [] Course & Med Decision Making: Course & Med Decision Making Pertinent Labs and Imaging studies reviewed. (See chart for details) 4120- Report to Dr. Castellano at this time. Advised of medications ordered and pending lab results. He will reevaluate pt and make final disposition. []. All results reviewed and discussed with patient. Patient reevaluated she is stable for discharge. Patient states she has cardiac follow-up on Tuesday. Patient advised to continue all medications as prescribed. Sacha Disclaimer: Sacha Disclaimer: This electronic medical record was generated, in whole or in part, using a voice recognition dictation system. Departure Departure Impression: Primary Impression: Medication reaction Additional Impression: Hypertension Disposition: HOME / SELF CARE / HOMELESS Condition: STABLE Referrals: NON,STAFF (PCP) Patient Instructions: Hypertension Problem Qualifiers TAMAR LINDA APRN November 22, 2020 22:39 SAIMA CASTELLANO DO November 22, 2020 23:43
[2020-11-22 22:44] LABS: BASO # 0.1 x10^3/uL (0.0-0.2); BASO % 1 % (0-3); EOS # 0.1 x10^3/uL (0.0-0.7); EOS % 2 % (0-3); HEMOGLOBIN 12.8 g/dL (12.0-15.5); LYMPH # 1.5 x10^3/uL (1.0-4.8); LYMPH % 38 % (24-48); MEAN CORPUSCULAR HEMOGLOBIN 26 pg (25-35); MEAN CORPUSCULAR HGB CONC 33 g/dL (31-37); MEAN CORPUSCULAR VOLUME 80 fL (79-100); MONO # 0.6 x10^3/uL (0.0-1.1); MONO % 15 % (0-9); NEUT # 1.7 x10^3/uL (1.8-7.7); NEUT % 43 % (31-73); PLATELET COUNT 271 x10^3/uL (140-400); RED BLOOD COUNT 4.87 x10^6/uL (3.50-5.40); RED CELL DISTRIBUTION WIDTH 14.8 % (11.5-14.5); WHITE BLOOD COUNT 3.9 x10^3/uL (4.0-11.0)
[2020-11-22 22:57] LABS: CALCIUM 8.8 mg/dL (8.5-10.1); CREATININE 0.7 mg/dL (0.6-1.0); GFR 108.5; MAGNESIUM 1.8 mg/dL (1.8-2.4); POTASSIUM 3.4 mmol/L (3.5-5.1)
[2020-11-22 23:48] VITALS: BP 122/78
--- NOTE | 2020-11-25 05:23 | EKG ---
[facility] [address] [place] [address] Test Date: 2020-11-22 Test Time: 22:06:46 Pat Name: RADHA BETANCOURT Department: Room: Gender: F Psychiatric Technician Assistant: : 1975 Requested By: TAMAR LINDA Order Number: [id number] Reading MD: Measurements Intervals [place] Rate: 89 P: 28 PA: 176 QRS: 9 QRSD: 88 T: -11 QT: 374 QTc: 456 Interpretive Statements SINUS RHYTHM QRS(T) CONTOUR ABNORMALITY CONSIDER ANTEROLATERAL MYOCARDIAL DAMAGE T ABNORMALITY IN INFERIOR LEADS ABNORMAL ECG RI6.02 No previous ECG available for comparison
== END 2020-11-22 23:57 | disposition home or self-care (01) ==
LOC: ER 21:48
DX: I10 Essential (primary) hypertension (principal); T46.6X5A Adverse effect of antihyperlipidemic and antiarteriosclerotic drugs, initial encounter; K21.9 Gastro-esophageal reflux disease without esophagitis; J45.909 Unspecified asthma, uncomplicated; E78.00 Pure hypercholesterolemia, unspecified; Z87.891 Personal history of nicotine dependence; Z91.041 Radiographic dye allergy status; Y92.89 Other specified places as the place of occurrence of the external cause
CPT/HCPCS: 36415; 80048; 82553; 83735; 84484; 85025; 96361; 96374; 99285; J2060; J7030; 93005

== ENCOUNTER 2021-02-26 01:35 | Emergency (ER) | payer OTHER ==
[~2021-02-26] VITALS: Ht 154.9 cm; Wt 90.0 kg
[~2021-02-26 01:35] MED LIST changes: +DOCU-148 PO; -DOCU-153 PO
--- NOTE | 2021-02-26 02:03 | PHYS DOC ---
Past Medical History Past Medical History: Arthritis, Asthma, GERD, High Cholesterol, Hypertension Additional Past Medical Histor: coronary spasms Past Surgical History: Other Additional Past Surgical Histo: cardiac stents Smoking Status: Former Smoker Alcohol Use: Occasionally Drug Use: None General Adult EDM: Chief Complaint: CHEST PAIN-CARDIAC NATURE HPI: HPI: Patient is a 45 year old male with past medical history hypertension hyperlipidemia coronary artery spasms presents with a chief complaint of chest discomfort with associated shortness of breath on exertion. Patient states she woke up yesterday morning 070 0 hours with some discomfort in her chest. Location of discomfort is substernal it does not radiate and it is described as a squeezing sensation. States she has associated shortness of breath. Exacerbating factors include exertion. Patient states she has had similar symptoms in the past has underwent 2 cardiac catheterizations with no stent placement. Patient has been seen by cardiology and was placed on nitro and Plavix. Patient states she ran out of her medications states she is out of her medications. Review of Systems: Review of Systems: Constitutional: Denies fever or chills. [] Eyes: Denies change in visual acuity. [] HENT: Denies nasal congestion or sore throat. [] Respiratory: Denies cough positive shortness of breath on exertion Cardiovascular: Positive chest discomfort GI: Denies abdominal pain, nausea, vomiting, bloody stools or diarrhea. [] : Denies dysuria. [] Musculoskeletal: Denies back pain or joint pain. [] Integument: Denies rash. [] Neurologic: Denies headache, focal weakness or sensory changes. [] Endocrine: Denies polyuria or polydipsia. [] Lymphatic: Denies swollen glands. [] Psychiatric: Denies depression or anxiety. [] Heart Score: C/O Chest Pain: Yes HEART Score for Chest Pain: HEART Score for Chest Pain Response (Comments) Value History Slighlty/Non-Suspicious 0 ECG Nonspecific Repolarizatio 1 Age >45 - < 65 1 Risk Factors 1 or 2 Risk Factors 1 Troponin >1-<3x Normal Limit 1 Total 4 Risk Factors: Risk Factors: DM, Current or recent (<one month) smoker, HTN, HLP, family history of CAD, obesity. Risk Scores: Score 0 - 3: 2.5% MACE over next 6 weeks - Discharge Home Score 4 - 6: 20.3% MACE over next 6 weeks - Admit for Clinical Observation Score 7 - 10: 72.7% MACE over next 6 weeks - Early Invasive Strategies Allergies: Allergies: Allergies Coded Allergies Type Severity Reaction Last Updated Verified Iodinated Contrast Media Allergy Severe Rash 10/26/20 Yes Physical Exam: PE: Constitutional: Well developed, well nourished, no acute distress, non-toxic appearance. [] HENT: Normocephalic, atraumatic, bilateral external ears normal, oropharynx moist, no oral exudates, nose normal. [] Eyes: PERRLA, EOMI, conjunctiva normal, no discharge. [] Neck: Normal range of motion, no tenderness, supple, no stridor. [] Cardiovascular:Heart rate regular rhythm, no murmur [] Lungs & Thorax: Bilateral breath sounds clear to auscultation [] Abdomen: Bowel sounds normal, soft, no tenderness, no masses, no pulsatile masses. [] Skin: Warm, dry, no erythema, no rash. [] Back: No tenderness, no CVA tenderness. [] Extremities: No tenderness, no cyanosis, no clubbing, ROM intact, no edema. [] Neurologic: Alert and oriented X 3, normal motor function, normal sensory function, no focal deficits noted. [] Psychologic: Affect normal, judgement normal, mood normal. [] Current Patient Data: Vital Signs: Vital Signs Date Time Temp Pulse Resp B/P (MAP) Pulse Ox O2 Delivery O2 Flow Rate FiO2 02/26/21 01:48 97.9 73 26 166/95 99 Room Air 97.9 EKG: EKG: Performed at 0142 Rate 70 Normal sinus rhythm No ST elevation No ST depression No acute UT [] Radiology/Procedures: Radiology/Procedures: [] Course & Med Decision Making: Course & Med Decision Making Pertinent Labs and Imaging studies reviewed. (See chart for details) [] Patient was evaluated for chief complaint. Work-up consisted of laboratory analysis and radiologic imaging and EKG. Results reviewed and discussed with patient. Patient is troponin negative. Patient Plavix and nitro refilled. 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 Sacha Disclaimer: Sacha Disclaimer: This electronic medical record was generated, in whole or in part, using a voice recognition dictation system. Departure Departure Impression: Primary Impression: Chest pain Additional Impression: Medication refill Disposition: 01 HOME / SELF CARE / HOMELESS Condition: STABLE Referrals: UNKNOWN PCP NAME (PCP) Patient Instructions: Chest Pain (Nonspecific), Medication Refill, Emergency Department Scripts Isosorbide Mononitrate (ISOSORBIDE MONONITRATE ER) 30 Mg Tab.er.24h 1 TAB PO DAILY, #30 TAB 5 Refills Prov: SAIMA VILLA DO 02/26/21 Clopidogrel Bisulfate (CLOPIDOGREL) 75 Mg Tablet 1 TAB PO DAILY, #30 TAB 1 Refill Prov: SAIMA VILLA DO 02/26/21 SAIMA VILLA DO Feb 26, 2021 02:03
[2021-02-26 02:20] LABS: BASO # 0.1 x10^3/uL (0.0-0.2); BASO % 1 % (0-3); EOS # 0.3 x10^3/uL (0.0-0.7); EOS % 3 % (0-3); HEMATOCRIT 37.7 % (36.0-47.0); HEMOGLOBIN 12.6 g/dL (12.0-15.5); LYMPH # 2.5 x10^3/uL (1.0-4.8); LYMPH % 31 % (24-48); MEAN CORPUSCULAR HEMOGLOBIN 27 pg (25-35); MEAN CORPUSCULAR HGB CONC 33 g/dL (31-37); MEAN CORPUSCULAR VOLUME 80 fL (79-100); MONO # 0.7 x10^3/uL (0.0-1.1); MONO % 9 % (0-9); NEUT # 4.6 x10^3/uL (1.8-7.7); NEUT % 56 % (31-73); PLATELET COUNT 267 x10^3/uL (140-400); RED BLOOD COUNT 4.74 x10^6/uL (3.50-5.40); RED CELL DISTRIBUTION WIDTH 15.8 % (11.5-14.5); WHITE BLOOD COUNT 8.1 x10^3/uL (4.0-11.0)
[2021-02-26 02:30] LABS: CREATININE 0.7 mg/dL (0.6-1.0); GFR 108.5; POTASSIUM 3.7 mmol/L (3.5-5.1)
[2021-02-26 02:35] LABS: ALBUMIN 3.7 g/dL (3.4-5.0); ALBUMIN/GLOBULIN RATIO 0.8 (1.0-1.7); TOTAL BILIRUBIN 0.2 mg/dL (0.2-1.0); TOTAL PROTEIN 8.1 g/dL (6.4-8.2)
--- NOTE | 2021-02-26 02:43 | RAD ---
AP chest x-ray HISTORY: Chest pain. COMPARISON: CT chest October 27, 2020 FINDINGS: Heart size stable. Mediastinal silhouette is normal. No pneumothorax, pulmonary opacities o r pleural effusions. Mild thoracic scoliosis. IMPRESSION: No acute process. Electronically signed by: Cirilo Angela MD (02/26/2021 2:41 AM) [facility]
[2021-02-26] MEDS ORDERED: CLOP75TA PO (03:56)
[2021-02-26] MEDS ORDERED: ISOS30TA68 PO (03:56)
[2021-02-26 04:00] VITALS: BP 147/83
--- NOTE | 2021-02-26 06:43 | EKG ---
[facility] [address] [place] [address] Test Date: 2021-02-26 Test Time: 01:42:16 Pat Name: RADHA BETANCOURT Department: Room: Gender: F Delivery Supervisor: : 1975 Requested By: SAIMA VILLA Order Number: [id number] Reading MD: Measurements Intervals [place] Rate: 70 P: 22 NV: 178 QRS: 14 QRSD: 84 T: 6 QT: 412 QTc: 448 Interpretive Statements SINUS RHYTHM VENTRICULAR PREMATURE COMPLEX(ES) ABNORMAL ECG RI6.01 No previous ECG available for comparison
== END 2021-02-26 04:00 | disposition home or self-care (01) ==
LOC: ER 01:35
DX: R07.89 Other chest pain (principal); Z76.0 Encounter for issue of repeat prescription; R06.02 Shortness of breath; J45.909 Unspecified asthma, uncomplicated; K21.9 Gastro-esophageal reflux disease without esophagitis; E78.00 Pure hypercholesterolemia, unspecified; I10 Essential (primary) hypertension; Z87.891 Personal history of nicotine dependence; Z95.5 Presence of coronary angioplasty implant and graft; Z91.041 Radiographic dye allergy status
CPT/HCPCS: 36415; 71045; 80053; 84484; 85025; 93005; 99285-25

== ENCOUNTER 2021-10-25 05:34 | Emergency (ER) | payer OTHER ==
[~2021-10-25] VITALS: Ht 154.9 cm; Wt 93.1 kg
[2021-10-25 05:50] VITALS: BP 170/94
[2021-10-25] MEDS ORDERED: AMOX1TAB61 PO (06:31)
--- NOTE | 2021-10-25 06:35 | PHYS DOC ---
Past Medical History Past Medical History: Arthritis, Asthma, GERD, High Cholesterol, Hypertension Additional Past Medical Histor: also reports and unknown heart history. Past Surgical History: Other Additional Past Surgical Histo: cyst removal from ovaries in 1998 Smoking Status: Heavy Tobacco Smoker Alcohol Use: Occasionally Drug Use: None General Adult EDM: Chief Complaint: EARACHE/EAR PAIN HPI: HPI: Patient is a 46 year old female who presents with right ear pain. Patient states that she has had several ear infections past. She states that she has had some hearing loss on the right with sensation of fullness. Patient states that she has not had any fever, sore throat, stuffy nose, any other systemic symptoms. She states it is an isolated right ear symptom. She states that it feels like she is underwater and cannot hear very well. She does not elicit any visual changes or headache. Review of Systems: Review of Systems: Constitutional: Denies fever or chills. [] Eyes: Denies change in visual acuity. [] HENT: Denies nasal congestion or sore throat. [] Respiratory: Denies cough or shortness of breath. [] Cardiovascular: Denies chest pain or edema. [] GI: Denies abdominal pain, nausea, vomiting, bloody stools or diarrhea. [] : Denies dysuria. [] Musculoskeletal: Denies back pain or joint pain. [] Integument: Denies rash. [] Neurologic: Denies headache, focal weakness or sensory changes. [] Endocrine: Denies polyuria or polydipsia. [] Lymphatic: Denies swollen glands. [] Psychiatric: Denies depression or anxiety. [] Heart Score: C/O Chest Pain: No Risk Factors: Risk Factors: DM, Current or recent (<one month) smoker, HTN, HLP, family history of CAD, obesity. Risk Scores: Score 0 - 3: 2.5% MACE over next 6 weeks - Discharge Home Score 4 - 6: 20.3% MACE over next 6 weeks - Admit for Clinical Observation Score 7 - 10: 72.7% MACE over next 6 weeks - Early Invasive Strategies Allergies: Allergies: Allergies Coded Allergies Type Severity Reaction Last Updated Verified Iodinated Contrast Media Allergy Severe Rash 10/26/20 Yes Physical Exam: PE: Constitutional: Well developed, well nourished, no acute distress, non-toxic appearance. [] HENT: Normocephalic, atraumatic, bilateral external ears normal, right tympanic membrane full, bulging, erythematous, purulent material behind the tympanic membrane, oropharynx moist, no oral exudates, nose normal. [] Eyes: PERRLA, EOMI, conjunctiva normal, no discharge. [] Neck: Normal range of motion, no tenderness, supple, no stridor. [] Cardiovascular:Heart rate regular rhythm, no murmur [] Lungs & Thorax: Bilateral breath sounds clear to auscultation [] Abdomen: Bowel sounds normal, soft, no tenderness, no masses, no pulsatile masses. [] Skin: Warm, dry, no erythema, no rash. [] Back: No tenderness, no CVA tenderness. [] Extremities: No tenderness, no cyanosis, no clubbing, ROM intact, no edema. [] Neurologic: Alert and oriented X 3, normal motor function, normal sensory function, no focal deficits noted. [] Psychologic: Affect normal, judgement normal, mood normal. [] Current Patient Data: Vital Signs: Vital Signs Date Time Temp Pulse Resp B/P (MAP) Pulse Ox O2 Delivery O2 Flow Rate FiO2 10/25/21 05:50 98.2 75 16 170/94 (119) 100 Room Air 98.2 EKG: EKG: [] Radiology/Procedures: Radiology/Procedures: [] Impression: 46-year-old female with right acute separative otitis media without rupture. Course & Med Decision Making: Course & Med Decision Making Pertinent Labs and Imaging studies reviewed. (See chart for details) Patient was given a prescription for Augmentin for 10 days twice daily. Patient stated that she would follow-up with her primary care physician in 1 to 2 weeks. I recommended that she would follow-up with her primary care physician for reevaluation of her tympanic membrane. Patient understood and was stable at the time of discharge. All questions answered. Sacha Disclaimer: Sacha Disclaimer: This electronic medical record was generated, in whole or in part, using a voice recognition dictation system. Departure Departure Impression: Primary Impression: Right acute otitis media Disposition: HOME / SELF CARE / HOMELESS Condition: GOOD Patient Instructions: Otitis Media, Adult, [id number] Additional Instructions: Follow-up with your primary care physician in 1 to 2 weeks Take all of the antibiotics prescribed Scripts Amoxicillin/Potassium Clav (AUGMENTIN 875-125 TABLET) 1 Each Tablet 1 TAB PO BID for 10 Days, #20 TAB 0 Refills Prov: ZACHERY RUFFIN MD 10/25/21 ZACHERY RUFFIN MD Oct 25, 2021 06:35
== END 2021-10-25 06:54 | disposition home or self-care (01) ==
LOC: ER 05:34
DX: H66.91 Otitis media, unspecified, right ear (principal); K21.9 Gastro-esophageal reflux disease without esophagitis; J45.909 Unspecified asthma, uncomplicated; E78.00 Pure hypercholesterolemia, unspecified; I10 Essential (primary) hypertension; Z72.0 Tobacco use; Z91.041 Radiographic dye allergy status
CPT/HCPCS: 99283